=== PATIENT | female | born 1970 | race African-American/Black ===

== ENCOUNTER 2017-01-24 18:41 | Emergency (ER) | payer MEDICARE, OTHER ==
[~2017-01-24] VITALS: Ht 165.1 cm; Wt 98.0 kg
[~2017-01-24 18:41] MED LIST: ALBUTEROL SULF8.5 GM INH; ALDACTAZIDE 251 EACH ORAL; AZITHROMYCIN250 MG ORAL; GABAPENTIN600 MG ORAL; IBUPROFEN600 MG ORAL; NAPROXEN500 M2 ORAL; NORCO 10-325 T1 EACH ORAL; PREDNISONE20 MG ORAL; TRAMADOL HCL50 MG ORAL; VALIUM5 MG ORAL
[2017-01-24] MEDS ORDERED: Norco 5mg/325mg tab ORAL ONE (19:45)
[2017-01-24] MEDS ORDERED: ELBOW STRAP1 EACH MC (20:20)
[2017-01-24] MEDS ORDERED: IBUPROFEN600 MG ORAL (20:20)
[2017-01-24] MEDS ORDERED: TRAMADOL HCL50 MG ORAL (20:20)
[2017-01-24 20:50] VITALS: BP 127/87
--- NOTE | 2017-01-24 21:53 | Emergency Room Report ---
History of Present Illness General Chief Complaint: Pain Source: Patient Present Illness [facility] The patient is a 46-year-old female presenting with left arm pain which began yesterday for no known reason. Pain is described as a 9/10 dull ache and does not radiate from the left elbow. Pain worse with arm movement. The patient denies any known injury to the area. She denies any numbness or tingling. She does admit to increased use of the arm recently for work. She denies any other symptoms including nausea, vomiting, fever, chills, rash Allergies: Coded Allergies: PENICILLINS (Unverified Allergy, Unknown, 12/07/14) Penicillium Notatum (Unverified Allergy, Unknown, 12/07/14) Patient History Past Medical History: see triage record Pertinent Family History: none Last Menstrual Period: Jul 2016 Now: No Reviewed Nursing Documentation: PMH: Agreed, PSxH: Agreed Nursing Documentation-PMH Past Medical History: No Stated History Hx Hypertension: Yes Hx Asthma: Yes Review of Systems All Other Systems: negative except mentioned in HPI Physical Exam Vital Signs Date Time Temp Pulse Resp B/P Pulse Ox O2 Delivery O2 Flow Rate FiO2 01/24/17 19:04 99.0 82 14 127/87 100 Room Air Sp02 EP Interpretation: reviewed, normal General Appearance: no apparent distress, alert, GCS 15, non-toxic Head: normocephalic, atraumatic Eyes: bilateral eye PERRL, bilateral eye normal inspection Musculoskeletal: normal inspection, normal range of motion, tender - TTP over the L lateral epicondyle Neurologic: alert, oriented x3, responsive, motor strength/tone normal, sensory intact, speech normal Psychiatric: judgement/insight normal, memory normal, mood/affect normal, no suicidal/homicidal ideation Skin: normal color, no rash, warm/dry, well hydrated Lymphatic: no adenopathy Procedures Splinting Splinting : Consent: Verbal Location: L forearm Pre-Made Type: TIN wrap Pre-Proc Neuro Vasc Exam: normal Post-Proc Neuro Vasc Exam: normal Patient Tolerated: Well Complications: None Medical Decision Making PA Attestation Dr. Millan is my supervising physician. Patient management was discussed with my supervising physician Diagnostic Impression: Primary Impression: Epicondylitis, lateral (tennis elbow) Qualified Codes: M77.12 - Lateral epicondylitis, left elbow ER Course The patient is a 46-year-old female presenting with left arm pain Ddx considered include but not limited to sprain/strain, fracture, contusion, tendonitis PE: Vitals within normal limits. No apparent distress Left arm: There is tenderness to palpation over the lateral upper condyle. No edema to the forearm or elbow. No ecchymosis. Full active range of motion. Pain worse with wrist extension. Tin wrap was placed over the forearm for compression. The patient is given pain medications and feels better Be discharged home with a forearm band is a prescription as well as pain medication. She is given RICE instructions and will followup with PMD. ER precautions given Last Vital Signs Date Time Temp Pulse Resp B/P Pulse Ox O2 Delivery O2 Flow Rate FiO2 01/24/17 19:04 99.0 82 14 127/87 100 Room Air Status: improved Disposition: HOME, SELF-CARE Condition: Improved Scripts Arm Brace (ELBOW STRAP) 1 Each Each 1 EACH , #1 Prov: SHELLY BROUSSARD.A. 01/24/17 Tramadol Hcl* (ULTRAM*) 50 Mg Tablet 50 MG ORAL Q6H Y for For Pain, #10 TAB 0 Refills Prov: MARIA ELENAANSHELLY P.A. 01/24/17 Ibuprofen* (MOTRIN*) 600 Mg Tablet 600 MG ORAL Q6H Y for For Pain, #30 TAB Prov: SHELLY BROUSSARD P.A. 01/24/17 Patient Instructions: Lateral Epicondylitis With Rehab-SportsMed Additional Instructions: I discussed my findings with the patient. All questions and concerns have been answered. Treatment and medication compliance have been addressed. I advised the patient that they need to follow up with PMD in 3-5 days. Return to ED if pain remains or worsens, numbness or tingling occurs, new rash is noticed, fever is noticed, or if needed for any reason. Patient verbalized understanding of discharge instructions. SHELLY BROUSSARD January 24, 2017 21:53
== END 2017-01-24 20:50 | disposition home or self-care (01) ==
LOC: EMR 19:30
DX: M77.12 Lateral epicondylitis, left elbow (principal); I10 Essential (primary) hypertension; J45.909 Unspecified asthma, uncomplicated
CPT/HCPCS: 29260; 99284

== ENCOUNTER 2017-01-26 19:33 | Emergency (ER) | payer MEDICARE, OTHER ==
[~2017-01-26] VITALS: Ht 165.1 cm; Wt 117.9 kg
[~2017-01-26 19:33] MED LIST changes: +ELBOW STRAP1 EACH MC
[2017-01-26 20:11] VITALS: BP 143/87
[2017-01-26] MEDS ORDERED: Ketorolac 30mg Inj IM ONE (20:15)
[2017-01-26] MEDS ORDERED: BACLOFEN10 MG ORAL (20:52)
[2017-01-26 21:00] VITALS: BP 143/87
--- NOTE | 2017-01-26 22:21 | Emergency Room Report ---
History of Present Illness General Chief Complaint: Pain Present Illness HPI The patient is a 46 old female presenting with left arm pain. The patient was seen in this emergency department 2 days prior and diagnosed with epicondylitis. The patient was given a prescription for pain medications and an arm brace which the patient did not obtain. The patient states that pain has continued and is a 6/10 dull ache. Pain does not radiate from around the left elbow. It is worse with arm movement and touch. She denies known injury to this area. She denies any other symptoms including nausea, vomiting, fever, chills, numbness or tingling, chest pain, shortness of breath Allergies: Coded Allergies: PENICILLINS (Unverified Allergy, Unknown, 12/07/14) Penicillium Notatum (Unverified Allergy, Unknown, 12/07/14) Patient History Past Medical History: see triage record Pertinent Family History: none Last Menstrual Period: JUL 2016 Reviewed Nursing Documentation: PMH: Agreed, PSxH: Agreed Nursing Documentation-PMH Hx Hypertension: Yes Hx Asthma: Yes Review of Systems All Other Systems: negative except mentioned in HPI Physical Exam Vital Signs Date Time Temp Pulse Resp B/P Pulse Ox O2 Delivery O2 Flow Rate FiO2 01/26/17 19:44 99.0 96 18 148/98 97 Room Air Sp02 EP Interpretation: reviewed, normal General Appearance: no apparent distress, alert, GCS 15, non-toxic Head: normocephalic, atraumatic Eyes: bilateral eye PERRL, bilateral eye normal inspection ENT: hearing grossly normal, normal pharynx, no angioedema, normal voice Musculoskeletal: normal range of motion, swelling, tender - TTP over the L lateral elbow Neurologic: alert, oriented x3, responsive, motor strength/tone normal, sensory intact, speech normal Psychiatric: judgement/insight normal, memory normal, mood/affect normal, no suicidal/homicidal ideation Skin: normal color, no rash, warm/dry, well hydrated Lymphatic: no adenopathy Procedures Splinting Splinting : Consent: Verbal Location: L forearm Pre-Made Type: TIN wrap Pre-Proc Neuro Vasc Exam: normal Post-Proc Neuro Vasc Exam: normal Patient Tolerated: Well Complications: None Medical Decision Making PA Attestation Dr. Zuniga is my supervising physician. Patient management was discussed with my supervising physician Diagnostic Impression: Primary Impression: Epicondylitis, lateral (tennis elbow) Qualified Codes: M77.12 - Lateral epicondylitis, left elbow ER Course The patient is a 46 old female presenting with left arm pain Ddx considered include but not limited to sprain/strain, fracture, contusion, tendonitis PE:No apparent distress. Left elbow: There is tenderness over the lateral aspect. There is edema distal to the lateral epicondyle. Full active range of motion. X-ray of the elbow is unremarkable. Tin wrap is placed over the forearm as a brace. The patient is discharged and will continue to use the medication as which were prescribed. She is also requesting a prescription for baclofen. ER precautions are given and she will follow up with PMD. RICE instructions given Other X-Ray Diagnostic Results Other X-Ray Diagnostic Results : X-Ray Ordered: L elbow Date: January 26, 2017 EP Interpretation: Yes Findings: no fractures, no dislocation, no soft tissue swelling Number of Views: 3 PA Scribe Text I am acting as scribe for my supervising physician. My supervising physician's interpretation of the L elbow xrays are there are no fractures, dislocations or soft tissue swelling. Last Vital Signs Date Time Temp Pulse Resp B/P Pulse Ox O2 Delivery O2 Flow Rate FiO2 01/26/17 21:00 99.0 87 18 143/87 97 Room Air Status: improved Disposition: HOME, SELF-CARE Condition: Improved Scripts Baclofen* (BACLOFEN*) 10 Mg Tablet 10 MG ORAL THREE TIMES A DAY, #15 TAB Prov: SHELLY BROUSSARD 01/26/17 Referrals: NOT CHOSEN IPA/MD,REFERRING (PCP) Patient Instructions: Tennis Elbow Additional Instructions: I discussed my findings with the patient. All questions and concerns have been answered. Treatment and medication compliance have been addressed. I advised the patient that they need to follow up with PMD in 3-5 days. Return to ED if pain remains or worsens, numbness or tingling occurs, new rash is noticed, fever is noticed, or if needed for any reason. Patient verbalized understanding of discharge instructions. SHELLY BROUSSARD January 26, 2017 22:21
--- NOTE | 2017-01-27 10:25 | Diagnostic Imaging Report ---
Indications: Left elbow pain Technique: 3 views left elbow. Findings: Comparison: None Soft tissues over the dorsum of the proximal forearm are mildly swollen and reticulated. No associated mass, gas or foreign body. No fracture, dislocation, joint space widening or effusion, lytic destruction, periosteal reaction , or other acute changes are identified. Small spur emanates from the coracoid process of the ulna. No other chronic changes are demonstrated. IMPRESSION: Dorsal soft tissue swelling, nonspecific No other evidence of acute abnormality of the left elbow Ulnar coracoid enthesophyte.
== END 2017-01-26 21:00 | disposition home or self-care (01) ==
LOC: EMR 20:02
DX: M77.12 Lateral epicondylitis, left elbow (principal); Z88.0 Allergy status to penicillin; I10 Essential (primary) hypertension; J45.909 Unspecified asthma, uncomplicated
CPT/HCPCS: 29260; 73080; 96372; 99283; J1885

== ENCOUNTER 2017-06-23 18:14 | Emergency (ER) | payer MEDICARE, OTHER ==
[~2017-06-23] VITALS: Ht 165.1 cm; Wt 113.4 kg
[~2017-06-23 18:14] MED LIST changes: +BACLOFEN10 MG ORAL
[2017-06-23 19:30] VITALS: BP 131/78
[2017-06-23 19:35] LABS: BASOPHILS % (AUTO) 1.7 % (0.0-2.0); EOSINOPHILS % (AUTO) 5.6 % (0.0-3.0); LYMPHOCYTES % (AUTO) 40.5 % (20.0-45.0); MEAN CORPUSCULAR HEMOGLOBIN 27.5 PG (27.0-31.0); MEAN CORPUSCULAR HGB CONC 30.2 G/DL (32.0-36.0); MEAN CORPUSCULAR VOLUME 91 FL (80-99); MEAN PLATELET VOLUME 7.7 FL (6.5-10.1); MONOCYTES % (AUTO) 10.6 % (1.0-10.0); NEUTROPHILS % (AUTO) 41.6 % (45.0-75.0); PLATELET COUNT 255 K/UL (150-450); RED CELL DISTRIBUTION WIDTH 13.5 % (11.6-14.8); WHITE BLOOD COUNT 8.9 K/UL (4.8-10.8)
[2017-06-23 20:11] LABS: ALANINE AMINOTRANSFERASE 23 U/L (12-78); ALBUMIN/GLOBULIN RATIO 0.6 (1.0-2.7); ANION GAP 4 (5-15); ASPARTATE AMINO TRANSFERASE 16 U/L (15-37); CALCIUM 9.2 MG/DL (8.5-10.1); CARBON DIOXIDE 32 MMOL/L (21-32); CHLORIDE 102 MMOL/L (98-107); CKMB 0.9 NG/ML (0.0-3.6); GLOMERULAR FILTRATION RATE > 60 mL/min (>60); POTASSIUM 4.2 MMOL/L (3.5-5.1); SODIUM 138 MMOL/L (136-145); TOTAL PROTEIN 8.8 G/DL (6.4-8.2)
--- NOTE | 2017-06-23 21:17 | Emergency Room Report ---
History of Present Illness General Chief Complaint: Chest Pain Source: Patient Present Illness HPI [id number] with chief complaint right breast pain for 3-4 days. Had 1x episode of "clear liquid" from breast days ago. Denies fever/chills, rash/abscess. Had mammogram "years ago." No abnormalities. Also c/o left sided chest pain for 2-3 days. Non radiating. Worse with movement. No CAD risk factors aside from HTN. No history of DVT, PE. Denies ETOH, smoking, drug use. Allergies: Coded Allergies: PENICILLINS (Unverified Allergy, Unknown, 12/07/14) Penicillium Notatum (Unverified Allergy, Unknown, 12/07/14) Patient History Past Medical History: HTN Past Surgical History: none Pertinent Family History: none Social History: Denies: smoking, alcohol use, drug use Now: No Immunizations: UTD Reviewed Nursing Documentation: PMH: Agreed, PSxH: Agreed Nursing Documentation-PMH Past Medical History: No History, Except For Hx Hypertension: Yes Hx Asthma: Yes Review of Systems All Other Systems: negative except mentioned in HPI Physical Exam Vital Signs Date Time Temp Pulse Resp B/P (MAP) Pulse Ox O2 Delivery O2 Flow Rate FiO2 06/23/17 18:23 97.0 84 16 172/94 97 Room Air Sp02 EP Interpretation: reviewed, normal General Appearance: normal inspection, well appearing, no apparent distress, alert Head: normocephalic, atraumatic Eyes: bilateral eye PERRL, bilateral eye EOMI ENT: normal ENT inspection Neck: normal inspection, full range of motion, supple, no bony tend Respiratory: normal inspection, lungs clear, normal breath sounds, no respiratory distress, no retraction, no wheezing Cardiovascular #1: regular rate, rhythm, no edema Gastrointestinal: normal inspection, normal bowel sounds, non tender, soft, no guarding, no hernia Genitourinary: no CVA tenderness Musculoskeletal: normal inspection, back normal, normal range of motion, Doni' s Sign negative Neurologic: normal inspection, alert, oriented x3, responsive, pump servicer helper III-XII nml as tested, motor strength/tone normal, speech normal Psychiatric: normal inspection, judgement/insight normal, mood/affect normal Skin: normal inspection, normal color, no rash, other - Breast exam with RN Kinsey bedside. No palpable right breast mass. No induration/erythema. No nipple abscess/discharge or mastitis. Medical Decision Making Diagnostic Impression: Primary Impression: Breast pain, right Additional Impression: Chest pain Qualified Codes: R07.9 - Chest pain, unspecified ER Course Right breast pain: No abscess or mastitis. No rash. Recommend outpatient mammogram Chest pain Labs, ECG, CXR no acute abnormality Low suspicion for ACS or PE given low risk HEART score, well appearance, duration of symptoms. Advised PMD followup for Cardiology referral for outpatient stress test DC home EKG Diagnostic Results Rate: normal, other - PVC Rhythm: NSR ST Segments: no acute changes ASA given to the pt in ED: No Rhythm Strip Diag. Results EP Interpretation: yes Rate: 86 Rhythm: NSR, no PVC's, no ectopy Chest X-Ray Diagnostic Results Chest X-Ray Diagnostic Results : Chest X-Ray Ordered: Yes # of Views/Limited/Complete: 1 View Indication: Chest Pain EP Interpretation: Yes Interpretation: no consolidation, no effusion, no pneumothorax, no acute cardiopulmonary disease Impression: No acute disease Electronically Signed by: Dr Paulie Alexandra MD Last Vital Signs Date Time Temp Pulse Resp B/P (MAP) Pulse Ox O2 Delivery O2 Flow Rate FiO2 06/23/17 18:23 97.0 84 16 172/94 97 Room Air Status: improved Disposition: HOME, SELF-CARE Condition: Improved Patient Instructions: Nonspecific Chest Pain, Breast Tenderness Additional Instructions: - Please follow up with your doctor for mammogram of right breast pain PAULIE ALEXANDRA M.D. Jun 23, 2017 21:17
[2017-06-23 21:30] VITALS: BP 131/78
--- NOTE | 2017-06-24 12:47 | Diagnostic Imaging Report ---
Indication: Chest pain Comparison: 09/10/16 A single view chest radiograph was obtained. Findings: Cardiomediastinal appearance is within normal limits for age. Pulmonary vascularity is appropriate. The diaphragmatic contour is smooth and costophrenic angles are sharp. No pleural effusions are identified. The bones are unremarkable. Impression: No acute findings
--- NOTE | 2017-07-05 08:41 | Cardiology Report ---
APPROVED REPORT EKG Measurement Heart [id number] Sinus rhythm with frequent premature ventricular complexes Otherwise normal ECG
== END 2017-06-23 21:30 | disposition home or self-care (01) ==
LOC: EMR 19:55
DX: N64.4 Mastodynia (principal); R07.89 Other chest pain; Z88.0 Allergy status to penicillin; I10 Essential (primary) hypertension; J45.909 Unspecified asthma, uncomplicated
CPT/HCPCS: 36415; 71010; 80053; 82550; 82553; 83880; 84484; 85025; 93005; 99283

== ENCOUNTER 2019-03-13 17:27 | Inpatient (IN) | payer MEDICARE, MEDICAID ==
[~2019-03-13] VITALS: Ht 165.1 cm; Wt 126.1 kg
[2019-03-13 17:42] VITALS: BP 125/62
--- NOTE | 2019-03-13 17:42 | NUR ---
ED Nurse Note: PT FROM HOME CAME IN DUE TO LEFT SIDE CP RADIATES TO LEFT UPPER ARM WITH NAUSEA SINCE 1130 THIS MORNING. PT TOOK ASA 500MG THIS AM. NO HX OF HEART PROBLEMS. AAO X4, AMBULATORY WITH NON LABORED BREATHING. MOANING IN PAIN BUT VSS. DR LAND AWARE.
[2019-03-13] MEDS ORDERED: Ketorolac 30mg Inj IV ONE (17:45)
--- NOTE | 2019-03-13 17:52 | Emergency Room Report ---
History of Present Illness General Chief Complaint: Chest Pain Source: Patient Present Illness HPI She states that her hip the patient presents with left-sided chest pain. It began while she was riding in a car with her sister. She was sitting down. She feels that sharp and stabbing in the upper left side of her chest. Somewhat pleuritic and radiates down her left arm slightly. She has a history of hypertension. She is on Spironolactone and hydrochlorothiazide. She has had a hip replacement. The pain is less than that however is severe. She rates it 8/10 at this time. She denies any fever or productive cough. She has had some coughing over the last few days. She has a history of asthma but does not use an inhaler routinely and does not have one at this time. She has not heard herself wheezing. Apparently she was doing heavy lifting yesterday. Patient denies dysuria. There is no diarrhea. There is no calf pain. Her last period ended 2 days ago and was normal for her. She denies diabetes. Surgery came about from overuse she was extremely active when she was younger. Allergies: Coded Allergies: METFORMIN (Verified Allergy, Unknown, Rash, 03/13/19) PENICILLINS (Unverified Allergy, Unknown, 12/07/14) TRAMADOL (Verified Allergy, Unknown, Rash, 03/13/19) Patient History Past Medical History: see triage record Past Surgical History: other - Hip surgery Social History: Denies: smoking Social History Narrative With her sister Last Menstrual Period: 03/10/19 Reviewed Nursing Documentation: PMH: Agreed; PSxH: Agreed Nursing Documentation-PMH Past Medical History: No History, Except For Hx Hypertension: Yes Hx Asthma: Yes Review of Systems All Other Systems: negative except mentioned in HPI Physical Exam Vital Signs Date Time Temp Pulse Resp B/P (MAP) Pulse Ox O2 Delivery O2 Flow Rate FiO2 03/13/19 17:32 98.2 96 18 138/94 (109) 94 Room Air Sp02 EP Interpretation: reviewed, normal General Appearance: well appearing, no apparent distress, GCS 15 Head: normocephalic Eyes: bilateral eye normal inspection ENT: moist mucus membranes Neck: supple Respiratory: lungs clear, normal breath sounds, other - Chest wall tenderness and shoulder tenderness which re-creates the pain Cardiovascular #1: regular rate, rhythm Cardiovascular #2: 2+ radial (R) Gastrointestinal: normal inspection, normal bowel sounds, non tender, no mass, non-distended, overweight Musculoskeletal: back normal, no calf tenderness, Doin's Sign negative, tender - Left shoulder and left chest wall with painful range of motion passively of left arm in the shoulder region Neurologic: alert, oriented x3, grossly normal Psychiatric: depressed affect Skin: no rash Medical Decision Making Diagnostic Impression: Primary Impression: Intractable chest pain Additional Impressions: Chest pain Qualified Codes: R07.89 - Other chest pain Hyperglycemia Hypertension Qualified Codes: I10 - Essential (primary) hypertension BMI 45.0-49.9, adult ER Course Patient presents with left-sided chest pain starting at rest. Differential includes acute myocardial infarction, costochondritis, pleurisy, pneumothorax, pulmonary embolus, chest wall strain amongst others. Based on her history and exam pulmonary embolus is less likely. Based on the history musculoskeletal because it is highly suspected evaluation will be with EKG, chest x-ray and labs. The patient will be treated with Zofran and Toradol. EKG with normal sinus rhythm. Nonspecific ST-T wave changes. Chest x-ray without abnormality. Labs significant for elevated blood glucose and negative troponin. Pain unchanged after Toradol, Percocet. She is still complains of severe pain. Also whenever she moves her arm the pain worsens. Her sister states "she cannot use her arm". There is no evidence of stroke at this time. Dilaudid is ordered. Patient complaining of nausea and still significant pain. She states that Bradner and Percocet do not help her at all. She gets more help from codeine. However based on the severity of the pain stronger analgesia will be used. Reglan and Benadryl administered. A sling is applied by the remanufacturing technician. This provided some relief. Distal neurovascular was intact although she preferred not to move her arm. This is checked by me. Due to the severity of the pain and disability and risk factors the patient is admitted to observation telemetry. Laboratory Tests Test 03/13/19 17:55 03/13/19 19:00 White Blood Count 7.6 K/UL (4.8-10.8) Red Blood Count 4.87 M/UL (4.20-5.40) Hemoglobin 13.7 G/DL (12.0-16.0) Hematocrit 41.8 % (37.0-47.0) Mean Corpuscular Volume 86 FL (80-99) Mean Corpuscular Hemoglobin 28.1 PG (27.0-31.0) Mean Corpuscular Hemoglobin Concent 32.8 G/DL (32.0-36.0) Red Cell Distribution Width 12.3 % (11.6-14.8) Platelet Count 275 K/UL (150-450) Mean Platelet Volume 7.3 FL (6.5-10.1) Neutrophils (%) (Auto) 46.2 % (45.0-75.0) Lymphocytes (%) (Auto) 42.3 % (20.0-45.0) Monocytes (%) (Auto) 6.4 % (1.0-10.0) Eosinophils (%) (Auto) 3.4 % (0.0-3.0) H Basophils (%) (Auto) 1.7 % (0.0-2.0) Prothrombin Time 10.5 SEC (9.30-11.50) Prothrombin Time INR 1.0 (0.9-1.1) PTT 27 SEC (23-33) Sodium Level 139 MMOL/L (136-145) Potassium Level 3.7 MMOL/L (3.5-5.1) Chloride Level 102 MMOL/L (98-107) Carbon Dioxide Level 28 MMOL/L (21-32) Anion Gap 9 mmol/L (5-15) Blood Urea Nitrogen 14 mg/dL (7-18) Creatinine 1.1 MG/DL (0.55-1.30) Estimate Glomerular Filtration Rate > 60 mL/min (>60) Glucose Level 223 MG/DL (74-106) H Calcium Level 9.6 MG/DL (8.5-10.1) Total Bilirubin 0.3 MG/DL (0.2-1.0) Aspartate Amino Transferase (AST) 16 U/L (15-37) Alanine Aminotransferase (ALT) 32 U/L (12-78) Alkaline Phosphatase 68 U/L (46-116) Total Creatine Kinase 126 U/L (26-308) Troponin I 0.000 ng/mL (0.000-0.056) Pro-B-Type Natriuretic Peptide 9 pg/mL (0-125) Total Protein 8.9 G/DL (6.4-8.2) H Albumin 3.5 G/DL (3.4-5.0) Globulin 5.4 g/dL Albumin/Globulin Ratio 0.6 (1.0-2.7) L Lipase 422 U/L (73-393) H Urine Color Pale yellow Urine Appearance Slightly cloudy Urine pH 5 (4.5-8.0) Urine Specific [place] 1.020 (1.005-1.035) Urine Protein Negative (NEGATIVE) Urine Glucose (UA) Negative (NEGATIVE) Urine Ketones Negative (NEGATIVE) Urine Blood Negative (NEGATIVE) Urine Nitrite Negative (NEGATIVE) Urine Bilirubin Negative (NEGATIVE) Urine Urobilinogen Normal MG/DL (0.0-1.0) Urine Leukocyte Esterase 1+ (NEGATIVE) H Urine RBC 0-2 /HPF (0 - 2) Urine WBC 2-4 /HPF (0 - 2) Urine Squamous Epithelial Cells Moderate /LPF (NONE/OCC) H Urine Bacteria Moderate /HPF (NONE) H Urine HCG, Qualitative Negative (NEGATIVE) Urine Opiates Screen Negative (NEGATIVE) Urine Barbiturates Screen Negative (NEGATIVE) Phencyclidine (PCP) Screen Negative (NEGATIVE) Urine Amphetamines Screen Negative (NEGATIVE) Urine Benzodiazepines Screen Negative (NEGATIVE) Urine Cocaine Screen Negative (NEGATIVE) Urine Marijuana (THC) Screen Negative (NEGATIVE) EKG Diagnostic Results Rate: normal Rhythm: NSR ST Segments: no acute changes Rhythm Strip Diag. Results EP Interpretation: yes Rhythm: NSR, no PVC's, no ectopy Chest X-Ray Diagnostic Results Chest X-Ray Diagnostic Results : Chest X-Ray Ordered: Yes # of Views/Limited/Complete: 1 View Indication: Chest Pain EP Interpretation: Yes Interpretation: no consolidation, no effusion, no pneumothorax Impression: No acute disease Electronically Signed by: Electronically signed by Uziel Duenas MD Last Vital Signs Date Time Temp Pulse Resp B/P (MAP) Pulse Ox O2 Delivery O2 Flow Rate FiO2 03/13/19 23:21 Room Air 03/13/19 23:21 100 03/13/19 23:21 98.6 18 133/73 (93) 94 Status: improved Disposition: PLACE IN OBSERVATION Condition: Serious Uziel Duenas MD Mar 13, 2019 17:52
--- NOTE | 2019-03-13 18:01 | NUR ---
ED Nurse Note: COLLECTED BLOOD SPECIMEN THEN SENT. PERMIT TECHNICIAN AT THE BED SIDE.
[2019-03-13 18:09] LABS: BASOPHILS % (AUTO) 1.7 % (0.0-2.0); EOSINOPHILS % (AUTO) 3.4 % (0.0-3.0); HEMATOCRIT 41.8 % (37.0-47.0); HEMOGLOBIN 13.7 G/DL (12.0-16.0); LYMPHOCYTES % (AUTO) 42.3 % (20.0-45.0); MEAN CORPUSCULAR VOLUME 86 FL (80-99); MONOCYTES % (AUTO) 6.4 % (1.0-10.0); NEUTROPHILS % (AUTO) 46.2 % (45.0-75.0); PLATELET COUNT 275 K/UL (150-450); RED BLOOD COUNT 4.87 M/UL (4.20-5.40); RED CELL DISTRIBUTION WIDTH 12.3 % (11.6-14.8); WHITE BLOOD COUNT 7.6 K/UL (4.8-10.8)
--- NOTE | 2019-03-13 18:12 | NUR ---
ED Nurse Note: SISTER AT THE BED SIDE.
[2019-03-13 18:26] LABS: ANION GAP 9 mmol/L (5-15); BLOOD UREA NITROGEN 14 mg/dL (7-18); CALCIUM 9.6 MG/DL (8.5-10.1); CARBON DIOXIDE 28 MMOL/L (21-32); CHLORIDE 102 MMOL/L (98-107); CREATININE 1.1 MG/DL (0.55-1.30); POTASSIUM 3.7 MMOL/L (3.5-5.1); SODIUM 139 MMOL/L (136-145)
[2019-03-13 18:36] LABS: ALANINE AMINOTRANSFERASE 32 U/L (12-78); ALBUMIN 3.5 G/DL (3.4-5.0); ALBUMIN/GLOBULIN RATIO 0.6 (1.0-2.7); ALKALINE PHOSPHATASE 68 U/L (46-116); ASPARTATE AMINO TRANSFERASE 16 U/L (15-37); BILIRUBIN,TOTAL 0.3 MG/DL (0.2-1.0); CREATINE KINASE 126 U/L (26-308)
--- NOTE | 2019-03-13 18:41 | NUR ---
ED Nurse Note: COLLECTED URINE THEN SENT TO LAB.
--- NOTE | 2019-03-13 19:00 | NUR ---
HAND-OFF: Report given to ESTEPHANIA GARCIA.
[2019-03-13 19:08] LABS: APPEARANCE,URINE SLIGHTLY CLOUDY; BILIRUBIN, URINE NEGATIVE (NEGATIVE); COLOR,URINE PALE YELLOW; GLUCOSE, URINE (UA) NEGATIVE (NEGATIVE); KETONES,URINE NEGATIVE (NEGATIVE); LEUKOCYTE ESTERASE ,URINE 1+ (NEGATIVE); NITRITE,URINE NEGATIVE (NEGATIVE); PH,URINE 5 (4.5-8.0); PROTEIN,URINE NEGATIVE (NEGATIVE); UROBILINOGEN,URINE NORMAL MG/DL (0.0-1.0)
[2019-03-13] MEDS ORDERED: HYDROcodone/Acetamin 5/325 tab ORAL ONE (19:30)
[2019-03-13] MEDS ORDERED: oxyCODONE HCL/Acetaminophen 5/325mg ORAL ONE (19:45)
[2019-03-13 20:03] VITALS: BP 131/65
--- NOTE | 2019-03-13 20:20 | NUR ---
NURSE NOTES: Patient received from ED via gurney. Patient is A/O x4, breathing room air spontaneously and ambulatory. Patient has a sling on her left arm and verbalized pain to her left shoulder, arm and chest. lunchroom monitor is in place, vital signs are stable. Bed is locked and in the lowest position. Call light is within patient's easy reach. Patient monitor continues. Will call MD for admission orders.
--- NOTE | 2019-03-13 20:45 | NUR ---
ED Nurse Note: Patient was medicated but still complaining of pain 8/10. More pain meds were order by ER MD.
[2019-03-13] MEDS ORDERED: HYDROmorphone 1mg/ml Carpuject IVP ONE (21:00)
[2019-03-13 22:00] VITALS: BP 131/65
[2019-03-13] MEDS ORDERED: Metoclopramide 10mg/2ml Inj IVP ONE (22:15)
[2019-03-13] MEDS ORDERED: DiphenhydrAMINE 50mg/ml Inj IVP ONE (22:15)
--- NOTE | 2019-03-13 23:05 | NUR ---
ED Nurse Note: Patient was admited to Tele due to CP, left arm, and shoulder pain. AAO x4, VSS at this time, skin is intact, warm to touch. Patient was transfered to unit via gurney by ACLS protocol, with all belongings.
[2019-03-13 23:10] VITALS: BP 125/67
[2019-03-13 23:21] VITALS: BP 133/73
[2019-03-14 04:00] VITALS: BP 123/77
--- NOTE | 2019-03-14 07:20 | NUR ---
HAND-OFF: Report given to JOSE Piedra.
--- NOTE | 2019-03-14 07:21 | NUR ---
NURSE NOTES: Received patient from [facility] RN's in bed having breakfast. Complain of pain 6/10, will give medication for pain. IV is intact and patent. Bed is lowest position, brakes engaged for safety. Call light is within easy reach. Noted patient has sling on left arm. Table and personal belongings within reach. Will continue with the plan of care.
[2019-03-14 08:00] VITALS: BP 124/81
[2019-03-14] MEDS: Spironolactone 25mg tab ORAL SCH (08:27)
--- NOTE | 2019-03-14 08:32 | NUR ---
CASE MANAGEMENT: INITIAL REVIEW 48 YO F PRESENTED TO ED FROM HOME CC: LEFT SIDED CP PMHx: HTN. ASTHMA. SI:LEFT SIDED CP. T 98.2 HR 96 RR 18 B/P 138/94 SATS 94% ON RA GLU 223 IS: ZOFRAN IV X1 KETORALAC IV X1 NORCO PO X1 LIDOCAINE TDERMAL X1 DILAUDID IV X1 PATIENT ADMITTED TO TELE 03/13/2019 @ 2333 DCP: PATIENT TO BE DISCHARGED TO HOME ONCE MEDICALLY CLEARED. 03/14/2019 SI:LEFT SIDED PAIN T 98.1 HR 99 RR 18 B/P 124/81 SATS 98% ON RA TROPONIN (-) IS: LIDOCAINE PATCH TDERMAL QD ALDACTONE PO QD TELE STATUS DCP: PATIENT TO BE DISCHARGED TO HOME ONCE MEDICALLY CLEARED. PLAN OF CARE: CARDIO EVAL Addendum: 03/14/19 at 0841 by Imani Mi CM INTERQUAL MET
--- NOTE | 2019-03-14 08:39 | NUR ---
INSURANCE NO B/AR INDICATION WHERE TO FAX CLINICALS/REVIEWS
--- NOTE | 2019-03-14 10:28 | GI Initial Consult Note ---
History of Present Illness General Date patient seen: Mar 14, 2019 Time patient seen: 10:23 Reason for Hospitalization: Chest Pain Referring physician: MALLY WASHBURN Reason for Consultation: PANCREATITIS Present Illness HPI She states that her hip the patient presents with left-sided chest pain. It began while she was riding in a car with her sister. She was sitting down. She feels that sharp and stabbing in the upper left side of her chest. Somewhat pleuritic and radiates down her left arm slightly. She has a history of hypertension. She is on Spironolactone and hydrochlorothiazide. She has had a hip replacement. The pain is less than that however is severe. She rates it 8/10 at this time. She denies any fever or productive cough. She has had some coughing over the last few days. She has a history of asthma but does not use an inhaler routinely and does not have one at this time. She has not heard herself wheezing. Apparently she was doing heavy lifting yesterday. Patient denies dysuria. There is no diarrhea. There is no calf pain. Her last period ended 2 days ago and was normal for her. She denies diabetes. Surgery came about from overuse she was extremely active when she was younger. GI consulted for pancreatitis. Patient seen, awake alert and oriented x4 no apparent distress. The patient has complaint of severe upper left-sided chest pain and left shoulder pain. Her initial symptoms as described above. In addition, the patient did state she did carry heavy objects a few days ago which may have caused/contributed to a strain in her shoulder. Labs reviewed; no leukocytosis, no anemia, negative urine toxicity. Lipase elevated at 422. The patient denies any use of alcohol or intake of fatty foods. She denies any nausea vomiting, abdominal pain, diarrhea or constipation. Patient has no history of endoscopic or colonoscopy. Home Meds Active Scripts Baclofen* (BACLOFEN*) 10 Mg Tablet, 10 MG ORAL THREE TIMES A DAY, #15 TAB Prov:TERZIAN,SHELLY P.A. 01/26/17 Arm Brace (ELBOW STRAP) 1 Each Each, 1 EACH , #1 Prov:TERZIAN,SHELLY P.A. 01/24/17 Tramadol Hcl* (ULTRAM*) 50 Mg Tablet, 50 MG ORAL Q6H PRN for For Pain, #10 TAB 0 Refills Prov:TERZIAN,SHELLY P.A. 01/24/17 Ibuprofen* (MOTRIN*) 600 Mg Tablet, 600 MG ORAL Q6H PRN for For Pain, #30 TAB Prov:TERZIAN,SHELLY P.A. 01/24/17 Tramadol Hcl* (ULTRAM*) 50 Mg Tablet, 50 MG ORAL Q6H PRN for For Pain, #15 TAB 0 Refills Prov:Levy Millan MD 09/10/16 Ibuprofen* (MOTRIN*) 600 Mg Tablet, 600 MG ORAL THREE TIMES A DAY, #30 TAB Prov:Kamilla Buckner 02/12/16 Reported Medications Naproxen* (NAPROXEN*) 500 Mg Tablet, 500 MG ORAL TWICE A DAY, TAB 02/12/16 Spironolact/Hydrochlorothiazid (ALDACTAZIDE 25-25 TABLET) 1 Each Tablet, 1 TAB ORAL DAILY, TAB 02/12/16 [none] No Conflict Check 08/29/13 Discontinued Reported Medications Gabapentin* (GABAPENTIN*) 600 Mg Tablet, 600 MG ORAL THREE TIMES A DAY, TAB 02/12/16 Med list reviewed/reconciled: Yes Allergies: Coded Allergies: METFORMIN (Verified Allergy, Unknown, Rash, 03/13/19) PENICILLINS (Unverified Allergy, Unknown, 12/07/14) TRAMADOL (Verified Allergy, Unknown, Rash, 03/13/19) Patient History History Provided By: Patient, Medical Record PMH Narrative Past Medical History: see triage record Past Surgical History: other - Hip surgery Social History: Denies: smoking Social History Narrative With her sister Last Menstrual Period: 03/10/19 Reviewed Nursing Documentation: PMH: Agreed; PSxH: Agreed Social History: Denies: smoking, alcohol use, drug use, other Review of Systems All Other Systems: negative except mentioned in HPI Physical Exam Vital Signs Date Time Temp Pulse Resp B/P (MAP) Pulse Ox O2 Delivery O2 Flow Rate FiO2 03/13/19 17:32 98.2 96 18 138/94 (109) 94 Room Air Sp02 EP Interpretation: reviewed, normal Labs Laboratory Tests Test 03/13/19 17:55 03/13/19 19:00 03/14/19 05:50 White Blood Count 7.6 K/UL (4.8-10.8) Red Blood Count 4.87 M/UL (4.20-5.40) Hemoglobin 13.7 G/DL (12.0-16.0) Hematocrit 41.8 % (37.0-47.0) Mean Corpuscular Volume 86 FL (80-99) Mean Corpuscular Hemoglobin 28.1 PG (27.0-31.0) Mean Corpuscular Hemoglobin Concent 32.8 G/DL (32.0-36.0) Red Cell Distribution Width 12.3 % (11.6-14.8) Platelet Count 275 K/UL (150-450) Mean Platelet Volume 7.3 FL (6.5-10.1) Neutrophils (%) (Auto) 46.2 % (45.0-75.0) Lymphocytes (%) (Auto) 42.3 % (20.0-45.0) Monocytes (%) (Auto) 6.4 % (1.0-10.0) Eosinophils (%) (Auto) 3.4 % (0.0-3.0) H Basophils (%) (Auto) 1.7 % (0.0-2.0) Prothrombin Time 10.5 SEC (9.30-11.50) Prothromb Time International Ratio 1.0 (0.9-1.1) Activated Partial Thromboplast Time 27 SEC (23-33) Sodium Level 139 MMOL/L (136-145) Potassium Level 3.7 MMOL/L (3.5-5.1) Chloride Level 102 MMOL/L (98-107) Carbon Dioxide Level 28 MMOL/L (21-32) Anion Gap 9 mmol/L (5-15) Blood Urea Nitrogen 14 mg/dL (7-18) Creatinine 1.1 MG/DL (0.55-1.30) Estimat Glomerular Filtration Rate > 60 mL/min (>60) Glucose Level 223 MG/DL (74-106) H Calcium Level 9.6 MG/DL (8.5-10.1) Total Bilirubin 0.3 MG/DL (0.2-1.0) Aspartate Amino Transf (AST/SGOT) 16 U/L (15-37) Alanine Aminotransferase (ALT/SGPT) 32 U/L (12-78) Alkaline Phosphatase 68 U/L (46-116) Total Creatine Kinase 126 U/L (26-308) Troponin I 0.000 ng/mL (0.000-0.056) 0.000 ng/mL (0.000-0.056) Pro-B-Type Natriuretic Peptide 9 pg/mL (0-125) Total Protein 8.9 G/DL (6.4-8.2) H Albumin 3.5 G/DL (3.4-5.0) Globulin 5.4 g/dL Albumin/Globulin Ratio 0.6 (1.0-2.7) L Lipase 422 U/L (73-393) H Pending Urine Color Pale yellow Urine Appearance Slightly cloudy Urine pH 5 (4.5-8.0) Urine Specific [place] 1.020 (1.005-1.035) Urine Protein Negative (NEGATIVE) Urine Glucose (UA) Negative (NEGATIVE) Urine Ketones Negative (NEGATIVE) Urine Blood Negative (NEGATIVE) Urine Nitrite Negative (NEGATIVE) Urine Bilirubin Negative (NEGATIVE) Urine Urobilinogen Normal MG/DL (0.0-1.0) Urine Leukocyte Esterase 1+ (NEGATIVE) H Urine RBC 0-2 /HPF (0 - 2) Urine WBC 2-4 /HPF (0 - 2) Urine Squamous Epithelial Cells Moderate /LPF (NONE/OCC) H Urine Bacteria Moderate /HPF (NONE) H Urine HCG, Qualitative Negative (NEGATIVE) Urine Opiates Screen Negative (NEGATIVE) Urine Barbiturates Screen Negative (NEGATIVE) Phencyclidine (PCP) Screen Negative (NEGATIVE) Urine Amphetamines Screen Negative (NEGATIVE) Urine Benzodiazepines Screen Negative (NEGATIVE) Urine Cocaine Screen Negative (NEGATIVE) Urine Marijuana (THC) Screen Negative (NEGATIVE) Triglycerides Level Pending Cholesterol Level Pending LDL Cholesterol Pending HDL Cholesterol Pending Cholesterol/HDL Ratio Pending General Appearance: well appearing, no apparent distress, alert Head: normocephalic EENT: PERRL/EOMI, normal ENT inspection Neck: supple Respiratory: normal breath sounds, no respiratory distress Cardiovascular: normal rate Gastrointestinal: normal inspection, non tender, soft, normal bowel sounds, non -distended Rectal: deferred Genitourinary: no CVA tenderness Musculoskeletal: normal inspection, back normal Neurologic: normal inspection, alert, oriented x3, responsive Psychiatric: normal inspection, judgement/insight normal, memory normal Skin: normal inspection, normal color, no rash, warm/dry, palpation normal, well hydrated Lymphatic: normal inspection, no adenopathy Current Medications Current Medications Medications (Trade) Dose Ordered Sig/Bret Route PRN Reason Start Time Stop Time Status Last Admin Dose Admin Acetaminophen (Tylenol) 650 mg Q4H PRN ORAL Mild Pain/Temp > 100.5 03/14/19 00:00 04/13/19 00:00 03/14/19 08:02 Lidocaine (Lidoderm 5% PATCH) 1 patch DAILY TDERMAL 03/13/19 20:30 04/12/19 20:29 03/14/19 08:28 Spironolactone (Aldactone) 25 mg DAILY ORAL 03/14/19 09:00 04/13/19 08:59 03/14/19 08:27 GI: Plan Problems: (1) Pancreatitis Plan No plans for GI procedures at this time Symptomatic treatment Advance diet as tolerated Obtain lipid panel and lipase level Pain management Cardiac work-up for chest pain Zofran as needed H2-marshall Follow labs Discussed with Dr. Fields. Thank you for this patient referral, we will follow. The patient was seen and examined at bedside and all new and available data was reviewed in the patients chart. I agree with the above findings, impression and plan. (Patient seen earlier today. Signature stamp does not reflect patient encounter time.). - MD Nadya Garrett,[facility] [employer] Mar 14, 2019 10:28
[2019-03-14 10:42] LABS: CHOLESTEROL 210 MG/DL (< 200); HDL CHOLESTEROL 33 MG/DL (40-60); TRIGLYCERIDES 65 MG/DL (30-150)
[2019-03-14 12:00] VITALS: BP 127/89
--- NOTE | 2019-03-14 12:14 | Cardiac Electrophysiology PN ---
Subjective Subjective [id number] Objective Last 24 Hour Vital Signs Date Time Temp Pulse Resp B/P (MAP) Pulse Ox O2 Delivery O2 Flow Rate FiO2 03/14/19 09:49 100 03/14/19 08:42 Room Air 03/14/19 08:00 98.1 99 18 124/81 (95) 98 03/14/19 04:00 104 03/14/19 04:00 98.1 104 18 123/77 (92) 100 03/13/19 23:21 Room Air 03/13/19 23:21 100 03/13/19 23:21 98.6 100 18 133/73 (93) 94 03/13/19 23:10 98.3 100 16 125/67 96 Room Air 03/13/19 23:10 98.4 100 16 125/65 95 Room Air 03/13/19 22:00 98.3 72 16 131/65 96 Room Air 03/13/19 21:30 98.3 03/13/19 20:12 98.3 03/13/19 20:03 98.3 74 15 131/65 96 Room Air 03/13/19 18:29 98.3 03/13/19 17:42 96 18 Room Air 03/13/19 17:42 98.2 78 15 125/62 94 Room Air 03/13/19 17:32 98.2 96 18 138/94 (109) 94 Room Air Laboratory Tests Test 03/13/19 17:55 03/13/19 19:00 03/14/19 05:50 White Blood Count 7.6 K/UL (4.8-10.8) Red Blood Count 4.87 M/UL (4.20-5.40) Hemoglobin 13.7 G/DL (12.0-16.0) Hematocrit 41.8 % (37.0-47.0) Mean Corpuscular Volume 86 FL (80-99) Mean Corpuscular Hemoglobin 28.1 PG (27.0-31.0) Mean Corpuscular Hemoglobin Concent 32.8 G/DL (32.0-36.0) Red Cell Distribution Width 12.3 % (11.6-14.8) Platelet Count 275 K/UL (150-450) Mean Platelet Volume 7.3 FL (6.5-10.1) Neutrophils (%) (Auto) 46.2 % (45.0-75.0) Lymphocytes (%) (Auto) 42.3 % (20.0-45.0) Monocytes (%) (Auto) 6.4 % (1.0-10.0) Eosinophils (%) (Auto) 3.4 % (0.0-3.0) H Basophils (%) (Auto) 1.7 % (0.0-2.0) Prothrombin Time 10.5 SEC (9.30-11.50) Prothromb Time International Ratio 1.0 (0.9-1.1) Activated Partial Thromboplast Time 27 SEC (23-33) Sodium Level 139 MMOL/L (136-145) Potassium Level 3.7 MMOL/L (3.5-5.1) Chloride Level 102 MMOL/L (98-107) Carbon Dioxide Level 28 MMOL/L (21-32) Anion Gap 9 mmol/L (5-15) Blood Urea Nitrogen 14 mg/dL (7-18) Creatinine 1.1 MG/DL (0.55-1.30) Estimat Glomerular Filtration Rate > 60 mL/min (>60) Glucose Level 223 MG/DL (74-106) H Calcium Level 9.6 MG/DL (8.5-10.1) Total Bilirubin 0.3 MG/DL (0.2-1.0) Aspartate Amino Transf (AST/SGOT) 16 U/L (15-37) Alanine Aminotransferase (ALT/SGPT) 32 U/L (12-78) Alkaline Phosphatase 68 U/L (46-116) Total Creatine Kinase 126 U/L (26-308) Troponin I 0.000 ng/mL (0.000-0.056) 0.000 ng/mL (0.000-0.056) Pro-B-Type Natriuretic Peptide 9 pg/mL (0-125) Total Protein 8.9 G/DL (6.4-8.2) H Albumin 3.5 G/DL (3.4-5.0) Globulin 5.4 g/dL Albumin/Globulin Ratio 0.6 (1.0-2.7) L Lipase 422 U/L (73-393) H 365 U/L (73-393) Urine Color Pale yellow Urine Appearance Slightly cloudy Urine pH 5 (4.5-8.0) Urine Specific [place] 1.020 (1.005-1.035) Urine Protein Negative (NEGATIVE) Urine Glucose (UA) Negative (NEGATIVE) Urine Ketones Negative (NEGATIVE) Urine Blood Negative (NEGATIVE) Urine Nitrite Negative (NEGATIVE) Urine Bilirubin Negative (NEGATIVE) Urine Urobilinogen Normal MG/DL (0.0-1.0) Urine Leukocyte Esterase 1+ (NEGATIVE) H Urine RBC 0-2 /HPF (0 - 2) Urine WBC 2-4 /HPF (0 - 2) Urine Squamous Epithelial Cells Moderate /LPF (NONE/OCC) H Urine Bacteria Moderate /HPF (NONE) H Urine HCG, Qualitative Negative (NEGATIVE) Urine Opiates Screen Negative (NEGATIVE) Urine Barbiturates Screen Negative (NEGATIVE) Phencyclidine (PCP) Screen Negative (NEGATIVE) Urine Amphetamines Screen Negative (NEGATIVE) Urine Benzodiazepines Screen Negative (NEGATIVE) Urine Cocaine Screen Negative (NEGATIVE) Urine Marijuana (THC) Screen Negative (NEGATIVE) Triglycerides Level 65 MG/DL (30-150) Cholesterol Level 210 MG/DL (< 200) H LDL Cholesterol 158 mg/dL (<100) H HDL Cholesterol 33 MG/DL (40-60) L Cholesterol/HDL Ratio 6.4 (3.3-4.4) H Microbiology Date/Time Source Procedure Growth Status 03/13/19 19:00 Urine,Clean Catch Urine Culture - Preliminary NO GROWTH Resulted Jamarcus Perla MD Mar 14, 2019 12:14
[2019-03-14] MEDS ORDERED: Isovue-300 100ml vial INJ PRN (12:15)
--- NOTE | 2019-03-14 12:52 | Diagnostic Imaging Report ---
Indication: Dyspnea Comparison: 06/23/2017 A single view chest radiograph was obtained. Findings: Cardiomediastinal appearance is within normal limits for age. The lungs are clear. Pulmonary vascularity is appropriate. The diaphragmatic contour is smooth and costophrenic angles are sharp. No pleural effusions are identified. The bones are unremarkable. Impression: No acute findings
--- NOTE | 2019-03-14 12:56 | Diagnostic Imaging Report ---
Indication: left shoulder pain Findings: 3 views of the left shoulder were obtained. Alignment of the left shoulder is normal. No acute fracture is identified. Soft tissues are unremarkable. Impression: No acute injury
--- NOTE | 2019-03-14 15:17 | Consultation ---
History of Present Illness General Chief Complaint: Chest Pain Referring physician: MALLY WASHBURN Reason for Consultation: PANCREATITIS Present Illness Allergies: Coded Allergies: METFORMIN (Verified Allergy, Unknown, Rash, 03/13/19) PENICILLINS (Unverified Allergy, Unknown, 12/07/14) TRAMADOL (Verified Allergy, Unknown, Rash, 03/13/19) Medication History Scheduled Baclofen* (Baclofen*), 10 MG ORAL THREE TIMES A DAY Ibuprofen* (Motrin*), 600 MG ORAL THREE TIMES A DAY Naproxen* (Naproxen*), 500 MG ORAL TWICE A DAY, (Reported) Spironolact/Hydrochlorothiazid (Aldactazide 25-25 Tablet), 1 TAB ORAL DAILY, ( Reported) Scheduled PRN Ibuprofen* (Motrin*), 600 MG ORAL Q6H PRN for For Pain Tramadol Hcl* (Ultram*), 50 MG ORAL Q6H PRN for For Pain Tramadol Hcl* (Ultram*), 50 MG ORAL Q6H PRN for For Pain Miscellaneous Medications [none], (Reported) Discontinued Medications Gabapentin* (Gabapentin*), 600 MG ORAL THREE TIMES A DAY, (Reported) Discontinued Reason: Pt stopped taking med [employer] Arm Brace (Elbow Strap), 1 EACH , (DME) Patient History Healthcare decision maker Resuscitation status Full Code Advanced Directive on File Physical Exam Last 24 Hour Vital Signs Date Time Temp Pulse Resp B/P (MAP) Pulse Ox O2 Delivery O2 Flow Rate FiO2 03/14/19 12:00 87 03/14/19 12:00 98.6 89 18 127/89 (102) 99 03/14/19 09:49 100 03/14/19 08:42 Room Air 03/14/19 08:00 98.1 99 18 124/81 (95) 98 03/14/19 04:00 104 03/14/19 04:00 98.1 104 18 123/77 (92) 100 03/13/19 23:21 Room Air 03/13/19 23:21 100 03/13/19 23:21 98.6 100 18 133/73 (93) 94 03/13/19 23:10 98.3 100 16 125/67 96 Room Air 03/13/19 23:10 98.4 100 16 125/65 95 Room Air 03/13/19 22:00 98.3 72 16 131/65 96 Room Air 03/13/19 21:30 98.3 03/13/19 20:12 98.3 03/13/19 20:03 98.3 74 15 131/65 96 Room Air 03/13/19 18:29 98.3 03/13/19 17:42 96 18 Room Air 03/13/19 17:42 98.2 78 15 125/62 94 Room Air 03/13/19 17:32 98.2 96 18 138/94 (109) 94 Room Air Laboratory Tests Test 03/13/19 17:55 03/13/19 19:00 03/14/19 05:50 White Blood Count 7.6 K/UL (4.8-10.8) Red Blood Count 4.87 M/UL (4.20-5.40) Hemoglobin 13.7 G/DL (12.0-16.0) Hematocrit 41.8 % (37.0-47.0) Mean Corpuscular Volume 86 FL (80-99) Mean Corpuscular Hemoglobin 28.1 PG (27.0-31.0) Mean Corpuscular Hemoglobin Concent 32.8 G/DL (32.0-36.0) Red Cell Distribution Width 12.3 % (11.6-14.8) Platelet Count 275 K/UL (150-450) Mean Platelet Volume 7.3 FL (6.5-10.1) Neutrophils (%) (Auto) 46.2 % (45.0-75.0) Lymphocytes (%) (Auto) 42.3 % (20.0-45.0) Monocytes (%) (Auto) 6.4 % (1.0-10.0) Eosinophils (%) (Auto) 3.4 % (0.0-3.0) H Basophils (%) (Auto) 1.7 % (0.0-2.0) Prothrombin Time 10.5 SEC (9.30-11.50) Prothromb Time International Ratio 1.0 (0.9-1.1) Activated Partial Thromboplast Time 27 SEC (23-33) Sodium Level 139 MMOL/L (136-145) Potassium Level 3.7 MMOL/L (3.5-5.1) Chloride Level 102 MMOL/L (98-107) Carbon Dioxide Level 28 MMOL/L (21-32) Anion Gap 9 mmol/L (5-15) Blood Urea Nitrogen 14 mg/dL (7-18) Creatinine 1.1 MG/DL (0.55-1.30) Estimat Glomerular Filtration Rate > 60 mL/min (>60) Glucose Level 223 MG/DL (74-106) H Calcium Level 9.6 MG/DL (8.5-10.1) Total Bilirubin 0.3 MG/DL (0.2-1.0) Aspartate Amino Transf (AST/SGOT) 16 U/L (15-37) Alanine Aminotransferase (ALT/SGPT) 32 U/L (12-78) Alkaline Phosphatase 68 U/L (46-116) Total Creatine Kinase 126 U/L (26-308) Troponin I 0.000 ng/mL (0.000-0.056) 0.000 ng/mL (0.000-0.056) Pro-B-Type Natriuretic Peptide 9 pg/mL (0-125) Total Protein 8.9 G/DL (6.4-8.2) H Albumin 3.5 G/DL (3.4-5.0) Globulin 5.4 g/dL Albumin/Globulin Ratio 0.6 (1.0-2.7) L Lipase 422 U/L (73-393) H 365 U/L (73-393) Urine Color Pale yellow Urine Appearance Slightly cloudy Urine pH 5 (4.5-8.0) Urine Specific [place] 1.020 (1.005-1.035) Urine Protein Negative (NEGATIVE) Urine Glucose (UA) Negative (NEGATIVE) Urine Ketones Negative (NEGATIVE) Urine Blood Negative (NEGATIVE) Urine Nitrite Negative (NEGATIVE) Urine Bilirubin Negative (NEGATIVE) Urine Urobilinogen Normal MG/DL (0.0-1.0) Urine Leukocyte Esterase 1+ (NEGATIVE) H Urine RBC 0-2 /HPF (0 - 2) Urine WBC 2-4 /HPF (0 - 2) Urine Squamous Epithelial Cells Moderate /LPF (NONE/OCC) H Urine Bacteria Moderate /HPF (NONE) H Urine HCG, Qualitative Negative (NEGATIVE) Urine Opiates Screen Negative (NEGATIVE) Urine Barbiturates Screen Negative (NEGATIVE) Phencyclidine (PCP) Screen Negative (NEGATIVE) Urine Amphetamines Screen Negative (NEGATIVE) Urine Benzodiazepines Screen Negative (NEGATIVE) Urine Cocaine Screen Negative (NEGATIVE) Urine Marijuana (THC) Screen Negative (NEGATIVE) Triglycerides Level 65 MG/DL (30-150) Cholesterol Level 210 MG/DL (< 200) H LDL Cholesterol 158 mg/dL (<100) H HDL Cholesterol 33 MG/DL (40-60) L Cholesterol/HDL Ratio 6.4 (3.3-4.4) H Microbiology Date/Time Source Procedure Growth Status 03/13/19 19:00 Urine,Clean Catch Urine Culture - Preliminary NO GROWTH Resulted Height (Feet): 5 Height (Inches): 5.00 Weight (Pounds): 278 Medications Current Medications Medications (Trade) Dose Ordered Sig/Bret Route PRN Reason Start Time Stop Time Status Last Admin Dose Admin Acetaminophen (Tylenol) 650 mg Q4H PRN ORAL Mild Pain/Temp > 100.5 03/14/19 00:00 04/13/19 00:00 03/14/19 13:24 Iopamidol (Isovue-300 100ml) 100 ml NOW PRN INJ Radiology Procedure 03/14/19 12:15 03/16/19 12:14 Lidocaine (Lidoderm 5% PATCH) 1 patch DAILY TDERMAL 03/13/19 20:30 04/12/19 20:29 03/14/19 08:28 Spironolactone (Aldactone) 25 mg DAILY ORAL 03/14/19 09:00 04/13/19 08:59 03/14/19 08:27 Assessment/Plan Assessment/Plan: Hematology Consultation RFA: Chest Pain Referring physician: MALLY WASHBURN Reason for Consultation: Hyperproteinemia DOS: 03/14/19 ID 48 y old female states that her hip the patient presents with left-sided chest pain. It began while she was riding in a car with her sister. She was sitting down. She feels that sharp and stabbing in the upper left side of her chest. Somewhat pleuritic and radiates down her left arm slightly. She has a history of hypertension. She is on Spironolactone and hydrochlorothiazide. She has had a hip replacement. The pain is less than that however is severe. She rates it 8/10 at this time. She denies any fever or productive cough. She has had some coughing over the last few days. She has a history of asthma but does not use an inhaler routinely and does not have one at this time. She has not heard herself wheezing. Apparently she was doing heavy lifting yesterday. Patient denies dysuria. There is no diarrhea. There is no calf pain. Her last period ended 2 days ago and was normal for her. GI consulted for pancreatitis. Cbc is wnl but noted to have a high protien elevated Home Meds Active Scripts Baclofen* (BACLOFEN*) 10 Mg Tablet, 10 MG ORAL THREE TIMES A DAY, #15 TAB Prov:TERZIAN,SHELLY P.A. 01/26/17 Arm Brace (ELBOW STRAP) 1 Each Each, 1 EACH MC, #1 Prov:TERZIAN,SHELLY P.A. 01/24/17 Tramadol Hcl* (ULTRAM*) 50 Mg Tablet, 50 MG ORAL Q6H PRN for For Pain, #10 TAB 0 Refills Prov:TERZIAN,SHELLY P.A. 01/24/17 Ibuprofen* (MOTRIN*) 600 Mg Tablet, 600 MG ORAL Q6H PRN for For Pain, #30 TAB Prov:TERZIAN,SHELLY P.A. 01/24/17 Tramadol Hcl* (ULTRAM*) 50 Mg Tablet, 50 MG ORAL Q6H PRN for For Pain, #15 TAB 0 Refills Prov:Levy Millan MD 09/10/16 Ibuprofen* (MOTRIN*) 600 Mg Tablet, 600 MG ORAL THREE TIMES A DAY, #30 TAB Prov:Kamilla Buckner 02/12/16 Reported Medications Naproxen* (NAPROXEN*) 500 Mg Tablet, 500 MG ORAL TWICE A DAY, TAB 02/12/16 Spironolact/Hydrochlorothiazid (ALDACTAZIDE 25-25 TABLET) 1 Each Tablet, 1 TAB ORAL DAILY, TAB 02/12/16 [none] No Conflict Check 08/29/13 Discontinued Reported Medications Gabapentin* (GABAPENTIN*) 600 Mg Tablet, 600 MG ORAL THREE TIMES A DAY, TAB 02/12/16 Med list reviewed/reconciled: Yes Allergies: Coded Allergies: METFORMIN (Verified Allergy, Unknown, Rash, 03/13/19) PENICILLINS (Unverified Allergy, Unknown, 12/07/14) TRAMADOL (Verified Allergy, Unknown, Rash, 03/13/19) Patient History History Provided By: Patient, Medical Record [facility] Narrative Past Medical History: see triage record Past Surgical History: other - Hip surgery Social History: Denies: smoking Social History Narrative With her sister Last Menstrual Period: 03/10/19 Reviewed Nursing Documentation: PMH: Agreed; PSxH: Agreed Social History: Denies: smoking, alcohol use, drug use, other Review ofs systems: negative except mentioned in HPI Physical Exam Vital Signs Date Time Temp Pulse Resp B/P (MAP) Pulse Ox O2 Delivery O2 Flow Rate FiO2 03/13/19 17:32 98.2 96 18 138/94 (109) 94 Room Air Sp02 EP Interpretation: reviewed, normal Labs Laboratory Tests Test 03/13/19 17:55 03/13/19 19:00 03/14/19 05:50 White Blood Count 7.6 K/UL (4.8-10.8) Red Blood Count 4.87 M/UL (4.20-5.40) Hemoglobin 13.7 G/DL (12.0-16.0) Hematocrit 41.8 % (37.0-47.0) Mean Corpuscular Volume 86 FL (80-99) Mean Corpuscular Hemoglobin 28.1 PG (27.0-31.0) Mean Corpuscular Hemoglobin Concent 32.8 G/DL (32.0-36.0) Red Cell Distribution Width 12.3 % (11.6-14.8) Platelet Count 275 K/UL (150-450) Mean Platelet Volume 7.3 FL (6.5-10.1) Neutrophils (%) (Auto) 46.2 % (45.0-75.0) Lymphocytes (%) (Auto) 42.3 % (20.0-45.0) Monocytes (%) (Auto) 6.4 % (1.0-10.0) Eosinophils (%) (Auto) 3.4 % (0.0-3.0) H Basophils (%) (Auto) 1.7 % (0.0-2.0) Prothrombin Time 10.5 SEC (9.30-11.50) Prothromb Time International Ratio 1.0 (0.9-1.1) Activated Partial Thromboplast Time 27 SEC (23-33) Sodium Level 139 MMOL/L (136-145) Potassium Level 3.7 MMOL/L (3.5-5.1) Chloride Level 102 MMOL/L (98-107) Carbon Dioxide Level 28 MMOL/L (21-32) Anion Gap 9 mmol/L (5-15) Blood Urea Nitrogen 14 mg/dL (7-18) Creatinine 1.1 MG/DL (0.55-1.30) Estimat Glomerular Filtration Rate > 60 mL/min (>60) Glucose Level 223 MG/DL (74-106) H Calcium Level 9.6 MG/DL (8.5-10.1) Total Bilirubin 0.3 MG/DL (0.2-1.0) Aspartate Amino Transf (AST/SGOT) 16 U/L (15-37) Alanine Aminotransferase (ALT/SGPT) 32 U/L (12-78) Alkaline Phosphatase 68 U/L (46-116) Total Creatine Kinase 126 U/L (26-308) Troponin I 0.000 ng/mL (0.000-0.056) 0.000 ng/mL (0.000-0.056) Pro-B-Type Natriuretic Peptide 9 pg/mL (0-125) Total Protein 8.9 G/DL (6.4-8.2) H Albumin 3.5 G/DL (3.4-5.0) Globulin 5.4 g/dL Albumin/Globulin Ratio 0.6 (1.0-2.7) L Lipase 422 U/L (73-393) H Pending Urine Color Pale yellow Urine Appearance Slightly cloudy Urine pH 5 (4.5-8.0) Urine Specific [place] 1.020 (1.005-1.035) Urine Protein Negative (NEGATIVE) Urine Glucose (UA) Negative (NEGATIVE) Urine Ketones Negative (NEGATIVE) Urine Blood Negative (NEGATIVE) Urine Nitrite Negative (NEGATIVE) Urine Bilirubin Negative (NEGATIVE) Urine Urobilinogen Normal MG/DL (0.0-1.0) Urine Leukocyte Esterase 1+ (NEGATIVE) H Urine RBC 0-2 /HPF (0 - 2) Urine WBC 2-4 /HPF (0 - 2) Urine Squamous Epithelial Cells Moderate /LPF (NONE/OCC) H Urine Bacteria Moderate /HPF (NONE) H Urine HCG, Qualitative Negative (NEGATIVE) Urine Opiates Screen Negative (NEGATIVE) Urine Barbiturates Screen Negative (NEGATIVE) Phencyclidine (PCP) Screen Negative (NEGATIVE) Urine Amphetamines Screen Negative (NEGATIVE) Urine Benzodiazepines Screen Negative (NEGATIVE) Urine Cocaine Screen Negative (NEGATIVE) Urine Marijuana (THC) Screen Negative (NEGATIVE) Triglycerides Level Pending Cholesterol Level Pending LDL Cholesterol Pending HDL Cholesterol Pending Cholesterol/HDL Ratio Pending PE: Vitals: reviewed General Appearance: NAD HEENT: normocephalic, atraumatic Neck: non-tender, normal alignment Respiratory/Chest: nromal breath sounds bilaterally Cardiovascular/Chest: normal peripheral pulses, normal rate Abdomen: normal bowel sounds, soft, nontender Extremities: normal range of motion ROS: Constitutional: No fever, no chills, no night sweats, no fatigue Skin: No rashes, lumps, itchiness, dryness HEENT: No NEVAREZ, ear ache, visual changes, double vision, nosebleeds Breasts: No lumps, pain, discharge Pulmonary: No cough, sputum, shortness of breath, coughing up blood Cardiovascular: No chest pain, tightness, palpitations, syncope, PND GI: No nausea, vomiting, diarrhea, melena, hematochezia, change in appetite, : No dysuria, frequency, urgency, urinary incontinence, foamy urine Musculoskeletal: No joint swelling or muscle pain, trauma, back pain Neurologic: No dizziness, fainting, seizures, changes in smell or taste Psychiatric: No nervousness, stress, or depression, anxiety, hallucination Current Medications Current Medications Medications (Trade) Dose Ordered Sig/Bret Route PRN Reason Start Time Stop Time Status Last Admin Dose Admin Acetaminophen (Tylenol) 650 mg Q4H PRN ORAL Mild Pain/Temp > 100.5 03/14/19 00:00 04/13/19 00:00 03/14/19 08:02 Lidocaine (Lidoderm 5% PATCH) 1 patch DAILY TDERMAL 03/13/19 20:30 04/12/19 20:29 03/14/19 08:28 Spironolactone (Aldactone) 25 mg DAILY ORAL 03/14/19 09:00 04/13/19 08:59 03/14/19 08:27 Assessment and Recs: # Hyperproteinemia with decreased albumin -- this is a dissociation that is abnormal --> obtain SPEP (serum protein electrophoresis) and UPEP (urine protein electrophoresis) if spep negative --> if above results in a m-spike or abnormally enhanced protein, will need to send off immunofixation serum/urine --> in the case of a m-spike or abnormally enhanced protein, will obtain a bone marrow biopsy # Pancreatitis with abd pain --> No plans for GI procedures at this time --> Symptomatic treatment --> Advance diet as tolerated # Musculoskeletal pain --> on nsaids as needed # HTN -- sbp goal is <140 --> per cards, have evaluated # HL on statin The timing of this note does not necessarily reflect the time of the patient was seen. GREATLY APPRECIATE CONSULTATION. Rafael Benjamin MD Mar 14, 2019 15:17
--- NOTE | 2019-03-14 15:19 | Diagnostic Imaging Report ---
Indication: Chest pain Technique: Continuous helical transaxial imaging of the chest was obtained from the thoracic inlet to the upper abdomen after intravenous nonionic contrast administration. Coronal 2-D reformats were also obtained. Automatic Exposure Control was utilized. Total Dose length Product (DLP): 1342.[address] Dose Index Volume (CTDIvol): 35.79 mGy Comparison: none Findings: Study is limited by large body habitus. There is a hiatal hernia present. No adenopathy, pleural or pericardial effusions are identified. The heart is grossly unremarkable. The lungs appear clear. No consolidative opacities or interstitial disease identified. The visualized part of the upper abdomen is unremarkable again with some limitations. IMPRESSION: No acute findings. Significant limitation due to body habitus. Hiatal hernia The CT scanner at [facility] is accredited by the [employer] and the scans are performed using dose optimization techniques as appropriate to a performed exam including Automatic Exposure control.
--- NOTE | 2019-03-14 15:33 | Cardiology Report ---
APPROVED REPORT EKG Measurement Heart [id number] Normal sinus rhythm Possible Anterior infarct, age undetermined Abnormal ECG
[2019-03-14 16:00] VITALS: BP 130/86
--- NOTE | 2019-03-14 16:00 | Consultation ---
DATE OF CONSULTATION: 03/14/2019 INFECTIOUS DISEASE CONSULT CONSULTING PHYSICIAN: Zeeshan Crystal M.D. PRIMARY ATTENDING: Jes Boyd M.D. REASON FOR CONSULT: Elevated lipase, pancreatitis. HISTORY OF PRESENT ILLNESS: This is a 48-year-old female admitted last night complaining of left side chest and shoulder pain. The patient states that she lifted heavy objects yesterday and had shoulder pain mainly. She was also found to have diabetes mellitus. PAST MEDICAL HISTORY: Has history of hypertension, asthma, morbid obesity. Has history of left total hip replacement. Has degenerative disc disease. ALLERGIES: Allergic to metformin, penicillin, tramadol. MEDICATIONS: Aldactone, Tylenol. Got a dose of hydromorphone and Percocet in the ER. SOCIAL HISTORY: Single. She is disabled. Nonsmoker. Does not use drugs. Drinks alcohol occasionally. Has 1 child. REVIEW OF SYSTEMS: No fever. No chills. Has left shoulder pain. Uses a sling since last night and currently the pain is improved with pain medication. No nausea. No vomiting. No dysuria. PHYSICAL EXAMINATION: VITAL SIGNS: Temperature 98.1, pulse 99, blood pressure 124/81. GENERAL APPEARANCE: Obese, no acute distress. HEAD AND NECK: [place] conjunctivae. No oral lesion. HEART: S1-S2 regular. LUNGS: Clear. ABDOMEN: Obese, soft, nontender. EXTREMITIES: No edema. Has left arm sling. LABORATORY AND DIAGNOSTIC DATA: Sodium 139, potassium 3.7, chloride 102, bicarbonate 28, BUN 14, creatinine 1.1, glucose is 223. Troponin I measurement x2 are negative. Lipase was 422. Urine culture so far negative. UA showed normal WBC and RBC, and 1+ leukocyte esterase. IMPRESSION: Elevation of lipase, may have mild pancreatitis. The patient denies any recent alcohol use. Has left shoulder pain, chest pain that seems to be atypical. Has morbid obesity, hypertension. RECOMMENDATIONS: Observe off antibiotic. The patient will be seen by GI specialist , will order left shoulder x-ray. At the end of my exam, I thank Dr. Boyd for involving me in the care of this patient. Zeeshan Crystal M.D. DR: JEB JOB#: [id number] CC: ANURADHA
--- NOTE | 2019-03-14 17:15 | Consultation ---
DATE OF CONSULTATION: 03/14/2019 CARDIOLOGY CONSULTATION CONSULTING PHYSICIAN: Jamarcus Perla M.D. REFERRING PHYSICIAN: Jes Boyd M.D. REASON FOR CONSULTATION: Chest and arm pain. HISTORY OF PRESENT ILLNESS: The patient is a 48-year-old lady with history of obesity, hypertension, and diabetes, who presented to the emergency room and there started having sharp stabbing upper left of the chest and arm pain. The patient stated the pain was so severe she could hold the arm only in one position. The patient denies any prior myocardial infarction or coronary artery disease or congestive heart failure. The patient has history of asthma, but has not been taking inhaler routinely. The patient's EKG showed no active ischemic changes. REVIEW OF SYSTEMS: Negative other what was mentioned in the history of present illness. PAST MEDICAL HISTORY: As mentioned above. FAMILY HISTORY: Noncontributory. SOCIAL HISTORY: She lives at home. Does not smoke or drink alcohol. PHYSICAL EXAMINATION: VITAL SIGNS: Blood pressure is 124/81, pulse 100, respirations 18, and temperature 98.1. HEAD AND NECK: Showed no JVD. LUNGS: Clear. CARDIOVASCULAR: Shows regular S1 and S2 with no gallop or murmur. ABDOMEN: Soft. EXTREMITIES: No pitting edema. LABORATORY AND DIAGNOSTIC DATA: 1. White count 7.2, hemoglobin , hematocrit 41.8, and platelets 275. Sodium 139, potassium 3.7, BUN 14, and creatinine 1.1. Glucose 223. Troponin negative x2. Amylase is 158. Lipase is 422. Urine toxicology screen is negative. IMPRESSION AND PLAN: 1. Chest pain. Her primary complaint is the left arm pain and shoulder pain. It is very hard for her to move the shoulder. This is not typical of cardiac pain. The patient is already ruled out for myocardial infarction by serial cardiac enzymes, EKG is nonischemic. We will get an echocardiogram to evaluate for ejection fraction and wall motion abnormality. 2. Hypertension. The patient is on Aldactone 25 mg daily. Home medications will be continued. 3. Possible pancreatitis with elevated lipase. Further evaluation by Dr. Fields. Thank you very much for allowing me to participate in the care of this patient. Please do not hesitate to contact for any questions regarding my evaluation. Jamarcus Perla M.D. DR: BRADEN JOB#: [id number] CC:
--- NOTE | 2019-03-14 17:55 | Consultation ---
History of Present Illness General Date patient seen: Mar 14, 2019 Present Illness Allergies: Coded Allergies: METFORMIN (Verified Allergy, Unknown, Rash, 03/13/19) PENICILLINS (Unverified Allergy, Unknown, 12/07/14) TRAMADOL (Verified Allergy, Unknown, Rash, 03/13/19) Medication History Scheduled Baclofen* (Baclofen*), 10 MG ORAL THREE TIMES A DAY Ibuprofen* (Motrin*), 600 MG ORAL THREE TIMES A DAY Naproxen* (Naproxen*), 500 MG ORAL TWICE A DAY, (Reported) Spironolact/Hydrochlorothiazid (Aldactazide 25-25 Tablet), 1 TAB ORAL DAILY, ( Reported) Scheduled PRN Ibuprofen* (Motrin*), 600 MG ORAL Q6H PRN for For Pain Tramadol Hcl* (Ultram*), 50 MG ORAL Q6H PRN for For Pain Tramadol Hcl* (Ultram*), 50 MG ORAL Q6H PRN for For Pain Miscellaneous Medications [none], (Reported) Discontinued Medications Gabapentin* (Gabapentin*), 600 MG ORAL THREE TIMES A DAY, (Reported) Discontinued Reason: Pt stopped taking [employer] Arm Brace (Elbow Strap), 1 EACH , (DME) Patient History Healthcare decision maker Resuscitation status Full Code Advanced Directive on File Physical Exam Last 24 Hour Vital Signs Date Time Temp Pulse Resp B/P (MAP) Pulse Ox O2 Delivery O2 Flow Rate FiO2 03/14/19 16:00 98.1 103 18 130/86 (101) 99 03/14/19 12:00 87 03/14/19 12:00 98.6 89 18 127/89 (102) 99 03/14/19 09:49 100 03/14/19 08:42 Room Air 03/14/19 08:00 98.1 99 18 124/81 (95) 98 03/14/19 04:00 104 03/14/19 04:00 98.1 104 18 123/77 (92) 100 03/13/19 23:21 Room Air 03/13/19 23:21 100 03/13/19 23:21 98.6 100 18 133/73 (93) 94 03/13/19 23:10 98.3 100 16 125/67 96 Room Air 03/13/19 23:10 98.4 100 16 125/65 95 Room Air 03/13/19 22:00 98.3 72 16 131/65 96 Room Air 03/13/19 21:30 98.3 03/13/19 20:12 98.3 03/13/19 20:03 98.3 74 15 131/65 96 Room Air 03/13/19 18:29 98.3 Laboratory Tests Test 03/13/19 19:00 03/14/19 05:50 Urine Color Pale yellow Urine Appearance Slightly cloudy Urine pH 5 (4.5-8.0) Urine Specific [place] 1.020 (1.005-1.035) Urine Protein Negative (NEGATIVE) Urine Glucose (UA) Negative (NEGATIVE) Urine Ketones Negative (NEGATIVE) Urine Blood Negative (NEGATIVE) Urine Nitrite Negative (NEGATIVE) Urine Bilirubin Negative (NEGATIVE) Urine Urobilinogen Normal MG/DL (0.0-1.0) Urine Leukocyte Esterase 1+ (NEGATIVE) H Urine RBC 0-2 /HPF (0 - 2) Urine WBC 2-4 /HPF (0 - 2) Urine Squamous Epithelial Cells Moderate /LPF (NONE/OCC) H Urine Bacteria Moderate /HPF (NONE) H Urine HCG, Qualitative Negative (NEGATIVE) Urine Opiates Screen Negative (NEGATIVE) Urine Barbiturates Screen Negative (NEGATIVE) Phencyclidine (PCP) Screen Negative (NEGATIVE) Urine Amphetamines Screen Negative (NEGATIVE) Urine Benzodiazepines Screen Negative (NEGATIVE) Urine Cocaine Screen Negative (NEGATIVE) Urine Marijuana (THC) Screen Negative (NEGATIVE) Troponin I 0.000 ng/mL (0.000-0.056) Total Protein (PEP) Pending Albumin (PEP) Pending Globulin (PEP) Pending Albumin/Globulin Ratio Pending [id number] Pending [id number] Pending Beta Globulins Pending Beta Gamma Globulin Pending PEP Abnormal Protein Bands Pending Protein Electrophoresis Interpret Pending Triglycerides Level 65 MG/DL (30-150) Cholesterol Level 210 MG/DL (< 200) H LDL Cholesterol 158 mg/dL (<100) H HDL Cholesterol 33 MG/DL (40-60) L Cholesterol/HDL Ratio 6.4 (3.3-4.4) H Lipase 365 U/L (73-393) Microbiology Date/Time Source Procedure Growth Status 03/13/19 19:00 Urine,Clean Catch Urine Culture - Preliminary NO GROWTH Resulted Height (Feet): 5 Height (Inches): 5.00 Weight (Pounds): 278 Medications Current Medications Medications (Trade) Dose Ordered Sig/Bret Route PRN Reason Start Time Stop Time Status Last Admin Dose Admin Acetaminophen (Tylenol) 650 mg Q4H PRN ORAL Mild Pain/Temp > 100.5 03/14/19 00:00 04/13/19 00:00 03/14/19 13:24 Iopamidol (Isovue-300 100ml) 100 ml NOW PRN INJ Radiology Procedure 03/14/19 12:15 03/16/19 12:14 Ketorolac Tromethamine (Toradol 30mg) 30 mg EVERY 8 HOURS IV 03/14/19 22:00 03/15/19 14:01 Lidocaine (Lidoderm 5% PATCH) 1 patch DAILY TDERMAL 03/13/19 20:30 04/12/19 20:29 03/14/19 08:28 Spironolactone (Aldactone) 25 mg DAILY ORAL 03/14/19 09:00 04/13/19 08:59 03/14/19 08:27 Assessment/Plan Assessment/Plan: (1) Left shoulder pain (2) Left shoulder sprain r/o tendon tear seen dictated Ced Oh Mar 14, 2019 17:55
--- NOTE | 2019-03-14 19:07 | NUR ---
HAND-OFF: Report given to Anthony. Patient is in stable condition.
--- NOTE | 2019-03-14 19:08 | NUR ---
NURSE NOTES: Got report from Dorothea GARCIA. Pt in stable condition. Denies any pain. No s/s of distress or discomfort noted. Pt resting in bed comfortably. Bed in low and locked position, call light within reach, bedside table within reach. Continue to monitor.
[2019-03-14 20:00] VITALS: BP 140/90
[2019-03-14] MEDS: Tylenol #3 tab (300mg/30mg) ORAL PRN (21:09)
[2019-03-14] MEDS: Ketorolac 30mg Inj IV SCH (21:53)
--- NOTE | 2019-03-14 23:45 | History and Physical Report ---
DATE OF ADMISSION: 03/13/2019 HISTORY OF PRESENT ILLNESS: The patient is admitted for basically chest pain, elevated LFT, and pancreatitis. The patient is also complaining of left shoulder pain since yesterday and it happened right after she lifted something heavy, so most likely this is to due to the lifting of the heavy things that she did. The patient also has history of hypertension. Denies nausea, vomiting, or diarrhea. Denies shortness of breath. Denies palpitation. Denies diaphoresis. PAST MEDICAL HISTORY: Chronic pain syndrome, history of asthma, history of hypertension, history of degenerative joint disease. PAST SURGICAL HISTORY: Left hip replacement. ALLERGIES: To penicillin, metformin, tramadol. MEDICATIONS: , hydrochlorothiazide, baclofen. FAMILY HISTORY: Noncontributory. SOCIAL HISTORY: The patient denies smoking, alcohol, or illicit drugs. REVIEW OF SYSTEMS: HEENT: Denies headaches. RESPIRATORY: Denies shortness of breath. Denies cough. CARDIOVASCULAR: No orthopnea. Reports chest pain and left shoulder pain x1 day after lifting heavy object. EXTREMITIES: Denies pain in lower extremities. CENTRAL NERVOUS SYSTEM: Denies change in speech pattern. PHYSICAL EXAMINATION: VITAL SIGNS: Temperature is 98.1, pulse is 104, blood pressure is 123/77. HEENT: PERRLA. NECK: Supple. No lymphadenopathy. CHEST: Clear to auscultation. CARDIOVASCULAR: Tachycardic. GASTROINTESTINAL: Soft, nontender, nondistended. No organomegaly. EXTREMITIES: No edema. Moves all four extremities. NEUROLOGIC: Sensory intact. Reflexes equal on both sides. Moves all four extremities. LABORATORY DATA: WBC of 7.6, hemoglobin 13.7, platelets 275. Sodium 139, potassium 3.7, BUN of 14, creatinine 1.1, glucose of 223. ASSESSMENT AND PLAN: Chest pain and left shoulder pain after lifting something heavy object and pancreatitis. I have basically asked Dr. Zeeshan Crystal, Dr. Fields, Dr. Humphrey, Dr. Perla, Dr. Pack, and Dr. Membreno to see the patient to rule out rotator cuff injury versus fracture as well as for pain management as well as to rule out acute coronary syndrome as well as for the management of hypertension as well as for pancreatitis. The patient originally NPO. Antibiotics if any per Dr. Zeeshan Crystal. Jes Boyd M.D. DR: MO JOB#: [id number] CC:
[2019-03-15 00:22] VITALS: BP 115/77
--- NOTE | 2019-03-15 01:15 | Consultation ---
DATE OF CONSULTATION: 03/14/2019 CHIEF COMPLAINT: Left shoulder pain. HISTORY OF PRESENT ILLNESS: The patient is a pleasant, 48-year-old female, who presents with complaints of left shoulder pain. The patient reports that she was lifting some bags with books and subsequently had pain in the left shoulder. No trauma. No previous history of any issues the shoulder. PAST MEDICAL HISTORY: Reviewed per intake chart. PAST SURGICAL HISTORY: Reviewed per intake chart. MEDICATIONS: Reviewed per intake chart. PHYSICAL EXAMINATION: EXTREMITIES: Examination shows tenderness to palpation of anterolateral acromion. There is mild swelling. No ecchymosis. Radial and ulnar pulse +2. She does have irritable range of motion and supraspinatus test does elicit pain. There is pain on AC joint. DIAGNOSTIC DATA: Imaging study showed no obvious fracture or dislocation, no soft tissue abnormalities, no subluxation of the joint space, no calcifications. ASSESSMENT: Right shoulder rotator cuff tendonitis. DISCUSSION: At this point, I think she has probably some inflammation along the rotator cuff. What I recommend is cryotherapy to the shoulder as well as Toradol 30 mg every 8 hours x3 doses. She can use the sling for comfort and then discontinue it, begin active range of motion. If she still has issues, then she can get MRI as an outpatient. Please re-consult ksenia. Himanshu Membreno M.D. DR: Marisabel JOB#: [id number] CC:
[2019-03-15 03:56] VITALS: BP 149/79
--- NOTE | 2019-03-15 04:30 | Consultation ---
DATE OF CONSULTATION: 03/14/2019 PAIN MANAGEMENT CONSULTATION CONSULTING PHYSICIAN: Meghan Pack M.D. REFERRING PHYSICIAN: Jes Boyd M.D. PHYSICIAN STAGE RIGGER: Jose Coleman CHIEF COMPLAINT: Pain in the left shoulder. HISTORY OF PRESENT ILLNESS: This is a 48-year-old female, who has been seen on the telemetry floor of [facility] for initial pain management consultation. The patient reports that she has been having left shoulder pain since yesterday. It is a constant pain rated at 6/10. She is describing the pain as a sharp stabbing pressure pain, increased with movement and reduced with medication. At this time, she was admitted under the care of Dr. Boyd due to pancreatitis, being seen by assistant toddler teacher and shearing machine tender to rule out any coronary issues. She had been lifting something heavy at home and felt a sharp pain in her shoulder. An x-ray of the shoulder was ordered showing no fracture and has been seen by the orthopedic surgeon, Dr. Membreno, who has prescribed the patient Toradol 30 mg every 8 hours IV. We were consulted so that the patient would have adequate pain control while here in the hospital. PAST MEDICAL HISTORY: Denies. PAST SURGICAL HISTORY: . SOCIAL HISTORY: Denies. ALLERGIES: Metformin, penicillin, and tramadol. MEDICATIONS: Aspirin. REVIEW OF SYSTEMS: Denies rash, fever, chills, sweating, dizziness, drowsiness, blurred vision, sore throat, or change in her weight. No shortness of breath or chest pain. No nausea, vomiting, diarrhea, or blood in the urine. No bowel or bladder incontinence. No dysuria. She is complaining of left shoulder pain. PHYSICAL EXAMINATION: GENERAL: Alert, awake, and oriented. VITAL SIGNS: Blood pressure 130/86, oxygen saturation 99%, respirations 18, and temperature is 98.1 degrees Fahrenheit. HEENT: PERRLA. NECK: Range of motion is full in all directions. No tenderness. No adenopathy. LUNGS: Clear bilaterally. HEART: S1 and S2 regular. ABDOMEN: Obese. BACK: Range of motion is full in flexion and extension. EXTREMITIES: Left upper extremity range of motion is decreased due to left upper extremity pain. Tenderness to palpation. No cyanosis. No clubbing. No edema. ASSESSMENT AND PLAN: This is a 48-year-old female with left shoulder pain, left shoulder sprain, rule out tendon tear. At this time, the patient is continued on the Toradol and was started on Tylenol No. 3 one tablet every 6 hours as needed for severe pain. We recommend the patient to have MRI of the left shoulder as per the orthopedic surgeon. The patient was discussed with Dr. Pack and Dr. Pack concurred. We will follow the patient. Meghan Pack M.D. MADELEINE Coleman DR: IVA JOB#: [id number] CC: ANURADHA
[2019-03-15] MEDS: Ketorolac 30mg Inj IV SCH (05:45)
[2019-03-15] MEDS: Tylenol #3 tab (300mg/30mg) ORAL PRN (05:45)
[2019-03-15 06:29] LABS: BASOPHILS % (AUTO) 1.6 % (0.0-2.0); EOSINOPHILS % (AUTO) 4.9 % (0.0-3.0); HEMATOCRIT 39.8 % (37.0-47.0); HEMOGLOBIN 12.9 G/DL (12.0-16.0); LYMPHOCYTES % (AUTO) 45.8 % (20.0-45.0); MEAN CORPUSCULAR VOLUME 87 FL (80-99); MONOCYTES % (AUTO) 8.2 % (1.0-10.0); NEUTROPHILS % (AUTO) 39.5 % (45.0-75.0); PLATELET COUNT 261 K/UL (150-450); RED BLOOD COUNT 4.56 M/UL (4.20-5.40); RED CELL DISTRIBUTION WIDTH 12.5 % (11.6-14.8); WHITE BLOOD COUNT 6.9 K/UL (4.8-10.8)
[2019-03-15 06:49] LABS: ANION GAP 7 mmol/L (5-15); BLOOD UREA NITROGEN 17 mg/dL (7-18); CALCIUM 8.9 MG/DL (8.5-10.1); CARBON DIOXIDE 29 MMOL/L (21-32); CHLORIDE 102 MMOL/L (98-107); CHOLESTEROL 196 MG/DL (< 200); HDL CHOLESTEROL 36 MG/DL (40-60); POTASSIUM 4.3 MMOL/L (3.5-5.1); SODIUM 138 MMOL/L (136-145); TRIGLYCERIDES 81 MG/DL (30-150)
--- NOTE | 2019-03-15 07:00 | NUR ---
HAND-OFF: Report given to Haris GARCIA. Endorsed plan of care.
--- NOTE | 2019-03-15 07:02 | General Progress Note ---
Assessment/Plan Problem List: (1) Pancreatitis ICD Codes: K85.90 - Acute pancreatitis without necrosis or infection, unspecified SNOMED: 13676429 (2) Hypertension ICD Codes: I10 - Essential (primary) hypertension SNOMED: 85612958 Qualifiers: Qualified Codes: I10 - Essential (primary) hypertension (3) Back pain ICD Codes: M54.9 - Dorsalgia, unspecified SNOMED: 256395802 Assessment/Plan: tolerating diet on pain meds fu labs dc planning per primary team Subjective ROS Limited/Unobtainable: Yes Allergies: Coded Allergies: METFORMIN (Verified Allergy, Unknown, Rash, 03/13/19) PENICILLINS (Unverified Allergy, Unknown, 12/07/14) TRAMADOL (Verified Allergy, Unknown, Rash, 03/13/19) Objective Last 24 Hour Vital Signs Date Time Temp Pulse Resp B/P (MAP) Pulse Ox O2 Delivery O2 Flow Rate FiO2 03/15/19 06:15 97.9 03/15/19 06:15 97.9 03/15/19 04:20 86 03/15/19 03:56 97.9 94 20 149/79 (102) 97 03/15/19 00:22 98.1 98 20 115/77 (90) 95 03/15/19 00:00 102 03/14/19 21:00 Room Air 03/14/19 20:00 97.7 90 20 140/90 (107) 97 03/14/19 20:00 93 03/14/19 16:00 100 03/14/19 16:00 98.1 103 18 130/86 (101) 99 03/14/19 12:00 87 03/14/19 12:00 98.6 89 18 127/89 (102) 99 03/14/19 09:49 100 03/14/19 08:42 Room Air 03/14/19 08:00 98.1 99 18 124/81 (95) 98 Intake and Output 03/14/19 03/15/19 18:59 06:59 Intake Total 2500 ml 360 ml Balance 2500 ml 360 ml Intake Oral 2500 ml 360 ml # Voids 4 2 Laboratory Tests 03/15/19 05:49: White Blood Count 6.9, Red Blood Count 4.56, Hemoglobin 12.9, Hematocrit 39.8, Mean Corpuscular Volume 87, Mean Corpuscular Hemoglobin 28.3, Mean Corpuscular Hemoglobin Concent 32.4, Red Cell Distribution Width 12.5, Platelet Count 261, Mean Platelet Volume 7.5, Neutrophils (%) (Auto) 39.5L, Lymphocytes (%) (Auto) 45.8H, Monocytes (%) (Auto) 8.2, Eosinophils (%) (Auto) 4.9H, Basophils (%) ( Auto) 1.6, Sodium Level 138, Potassium Level 4.3, Chloride Level 102, Carbon Dioxide Level 29, Anion Gap 7, Blood Urea Nitrogen 17, Creatinine 1.0, Estimat Glomerular Filtration Rate > 60, Glucose Level 205H, Calcium Level 8.9, Triglycerides Level 81, Cholesterol Level 196, LDL Cholesterol 145H, HDL Cholesterol 36L, Cholesterol/HDL Ratio 5.4H, Lipase 663H Height (Feet): 5 Height (Inches): 5.00 Weight (Pounds): 278 General Appearance: alert EENT: normal ENT inspection Neck: supple Cardiovascular: normal rate Respiratory/Chest: lungs clear Abdomen: normal bowel sounds, non tender, soft Extremities: non-tender Bob Fields MD Mar 15, 2019 07:02
[2019-03-15 08:00] VITALS: BP 125/80
[2019-03-15] MEDS: Spironolactone 25mg tab ORAL SCH (09:18)
--- NOTE | 2019-03-15 09:30 | NUR ---
PATIENT ASKED THAT WANT TO LEAVE LOW AND CAN NOT WAIT UNTIL BE SEEN BY HER PHYSICIAN PER PATIENT" IF I DID NOT DISCHARGED YESTERDAY, SO I WILL NOT BE DISCHARGED TODAY." PATIENT SIGNED AMA AT 0930 AM AND LEFT [facility] AT 0930 AM.CONTROLS PROJECT ENGINEER AND IV CATHETER REMOVED PER PROTOCOL. NOTIFIED
--- NOTE | 2019-03-15 12:17 | NUR ---
INSURANCE CLINICALS FAXED TO [facility]: MISSAEL P- [phone] X Rupal F- [phone]....REVIEW/CLINICAL
--- NOTE | 2019-03-15 21:46 | Cardiology Report ---
APPROVED REPORT EKG Measurement Heart [id number] Poor data quality, interpretation may be adversely affected Normal sinus rhythm Possible Inferior infarct, age undetermined Possible Anterior infarct, age undetermined Abnormal ECG
--- NOTE | 2019-03-16 08:08 | Discharge Summary ---
Discharge Summary Discharge Summary _ DATE OF ADMISSION: 03/13/2019 DATE OF DISCHARGE: 03/15/2019 DISCHARGED BY: Dr. Jes Guillen CONSULTANTS: Dr. Elissa Benjamin [facility] COURSE: Patient is a 48-year-old female, who presented to ED due to left shoulder pain after heavy lifting. She had left-sided chest pain. It began while she was riding in a car, while sitting down, she felt a sharp and stabbing in the upper left side of the chest. Pain was somewhat pleuritic and radiated to the left arm. She had a history of hypertension. She denied any fever or productive cough. She had some coughing over the past few days. She has a history of asthma, however does not use inhaler routinely. On evaluation at ED, vital signs were stable. Blood work did not show any leukocytosis, hemoglobin and hematocrit were stable. Electrolytes were normal. Troponin negative. Lipase was elevated to 422. LFTs and bilirubin were normal. Urinalysis was essentially negative. Urine toxicology screen was negative. EKG was in normal sinus rhythm with no acute changes. Chest x-ray did not show any acute disease. She was given Toradol and Percocet. Pain unchanged. Patient complained of nausea and stated that [place] and Percocet did not help. She needed stronger analgesia. She was then given Dilaudid. She was given Reglan and Benadryl. She complained " she cannot use her arm". There was no evidence of stroke. A sling was applied and provided some relief. Due to severity of pain and disability including patient's risk factors, she was admitted to telemetry. Dispatch Clerk was consulted. Cardiac enzymes were negative x2. EKG was nonischemic. She was continued on Aldactone 25 mg for blood pressure support. She was ordered echocardiogram. Patient had elevated lipase. GI was consulted. Patient denied any use of alcohol or intake of fatty foods. She denied any nausea, vomiting, diarrhea or constipation. Diet was advanced as tolerated. She was given symptomatic treatment. She complained of pain to the left shoulder. Orthopedic surgeon was consulted. Examination of the left shoulder showed tenderness to palpation of anterolateral acromion. There was mild swelling. No ecchymosis. Radial and ulnar pulses +2. She had irritable range of motion and supraspinatus test elicited pain. There is pain on AC joint. Imaging studies showed no obvious fracture or dislocation, no soft tissue abnormalities, no subluxation of the joint space, no calcifications. She was diagnosed with right shoulder rotator cuff tendinitis. She was recommended cryotherapy and Toradol every 8 hours for 3 doses. She was advised can use a sling for comfort and discontinue, to begin active range of motion. She was recommended MRI as an outpatient. Pain management was consulted. She was started on Tylenol 3. Medical Transcriptionist was consulted. Patient had hyperproteinemia with decreased albumin. She was tolerating diet well. Full treatment was not carried out as patient left against medical advise. FINAL DIAGNOSES: Musculoskeletal chest pain and left shoulder pain, after heavy lifting Acute pancreatitis Right shoulder rotator cuff tendinitis Hyperproteinemia and decreased albumin Hypertension DISPOSITION: Patient left against medical advise. I have been assigned to complete a discharge summary on this account, I was not involved with the patient's management.--CHARLOTTE Mendoza Jacqueline Robles NP Mar 16, 2019 08:08
--- NOTE | 2019-03-16 10:32 | NUR ---
INSURANCE CLINICALS FAXED TO [facility]: MISSAEL P- [phone] X Rupal F- [phone]....REVIEW/CLINICAL
== END 2019-03-15 09:40 | disposition left against medical advice (07) | DRG 557 ==
LOC: EMR 20:10 → 2E 21:25 → OBSVTOIN 21:25 → EDBEDREQ 22:22
DX: M75.102 Unspecified rotator cuff tear or rupture of left shoulder, not specified as traumatic (principal); K85.90 Acute pancreatitis without necrosis or infection, unspecified; R07.89 Other chest pain; Z88.6 Allergy status to analgesic agent; Z88.0 Allergy status to penicillin; Z88.8 Allergy status to other drugs, medicaments and biological substances; E11.9 Type 2 diabetes mellitus without complications; E66.01 Morbid (severe) obesity due to excess calories; Z96.642 Presence of left artificial hip joint; I10 Essential (primary) hypertension; E88.09 Other disorders of plasma-protein metabolism, not elsewhere classified
CPT/HCPCS: 36415; 71045; 71260; 80048; 80053; 80061; 80307; 81003; 81025; 82550; 83690; 83880; 84165; 84484; 85025; 85610; 85730; 87086; 93005; 96374; 96375; 99285; J2405; J2765

== ENCOUNTER 2019-06-16 09:55 | Emergency (ER) | payer MEDICARE, MEDICAID ==
[~2019-06-16] VITALS: Ht 165.1 cm; Wt 77.1 kg
[2019-06-16 10:06] VITALS: BP 127/58
--- NOTE | 2019-06-16 10:07 | NUR ---
ED Nurse Note: Pt walked in due to right side CP x 1 day with Nausea and vomiting. Denies injury or trauma to her chest. AAO x4 and ambulates with assistance, with non labored breathing.
--- NOTE | 2019-06-16 10:12 | Emergency Room Report ---
History of Present Illness General Chief Complaint: General Complaint Source: Patient, Medical Record Present Illness HPI Patient presents with several different complaints initially complaining of increased nausea Patient reports that 2 days ago she started having nauseous sensation she has now recently developed diffuse body cramping Including the base of both feet Patient has a mild cough denies any chest pain or shortness of breath Denies any diarrhea Patient had a cramping sensation in the suprapubic area denies any recent travel or trauma Denies any focal weakness Allergies: Coded Allergies: METFORMIN (Verified Allergy, Unknown, Rash, 03/13/19) PENICILLINS (Unverified Allergy, Unknown, 12/07/14) TRAMADOL (Verified Allergy, Unknown, Rash, 03/13/19) Patient History Past Medical History: see triage record Now: No Reviewed Nursing Documentation: PMH: Agreed; PSxH: Agreed Nursing Documentation-PMH Hx Hypertension: Yes Hx Asthma: Yes Hx Diabetes: Yes - Type 2 Review of Systems All Other Systems: negative except mentioned in HPI Physical Exam Vital Signs Date Time Temp Pulse Resp B/P (MAP) Pulse Ox O2 Delivery O2 Flow Rate FiO2 06/16/19 09:57 100.0 98 12 128/90 (103) 100 Room Air Sp02 EP Interpretation: reviewed, normal General Appearance: well appearing, no apparent distress Head: normocephalic, atraumatic Eyes: bilateral eye PERRL, bilateral eye EOMI ENT: hearing grossly normal, normal pharynx, TMs + canals normal, uvula midline Neck: full range of motion, supple, no meningismus, no bony tend Respiratory: lungs clear, normal breath sounds, no rhonchi, no respiratory distress, no retraction, no accessory muscle use Cardiovascular #1: normal peripheral pulses, regular rate, rhythm, no edema, no gallop, no JVD, no murmur Gastrointestinal: normal bowel sounds, non tender, soft, no mass, no organomegaly, non-distended, no guarding, no hernia, no pulsatile mass, no rebound Genitourinary: no CVA tenderness Musculoskeletal: normal inspection Neurologic: oriented x3, responsive, die assembler III-XII nml as tested, motor strength/ tone normal, sensory intact Psychiatric: mood/affect normal Skin: no rash Lymphatic: normal inspection, no adenopathy Medical Decision Making Diagnostic Impression: Primary Impression: Nausea Additional Impression: Myalgia ER Course Patient is a fairly complex patient with multiple differential to consideration including but not limited to cardiac cardiopulmonary and vascular emergencies other infectious pathology entertained Dehydration with electrolyte abnormality, Patient's blood work is at baseline levels No obvious infectious process is appreciated Patient does not appear to have findings consistent with any cardiac pathology and is stable for initial conservative outpatient trial Labs Test 06/16/19 10:10 06/16/19 10:40 White Blood Count 7.4 K/UL (4.8-10.8) Red Blood Count 4.90 M/UL (4.20-5.40) Hemoglobin 13.8 G/DL (12.0-16.0) Hematocrit 42.2 % (37.0-47.0) Mean Corpuscular Volume 86 FL (80-99) Mean Corpuscular Hemoglobin 28.2 PG (27.0-31.0) Mean Corpuscular Hemoglobin Concent 32.7 G/DL (32.0-36.0) Red Cell Distribution Width 12.3 % (11.6-14.8) Platelet Count 296 K/UL (150-450) Mean Platelet Volume 6.9 FL (6.5-10.1) Neutrophils (%) (Auto) 39.8 % (45.0-75.0) Lymphocytes (%) (Auto) 44.1 % (20.0-45.0) Monocytes (%) (Auto) 10.3 % (1.0-10.0) Eosinophils (%) (Auto) 4.1 % (0.0-3.0) Basophils (%) (Auto) 1.7 % (0.0-2.0) Sodium Level 136 MMOL/L (136-145) Potassium Level 3.6 MMOL/L (3.5-5.1) Chloride Level 100 MMOL/L (98-107) Carbon Dioxide Level 29 MMOL/L (21-32) Anion Gap 7 mmol/L (5-15) Blood Urea Nitrogen 13 mg/dL (7-18) Creatinine 0.9 MG/DL (0.55-1.30) Estimat Glomerular Filtration Rate > 60 mL/min (>60) Glucose Level 135 MG/DL (74-106) Calcium Level 8.9 MG/DL (8.5-10.1) Total Bilirubin 0.3 MG/DL (0.2-1.0) Aspartate Amino Transf (AST/SGOT) 16 U/L (15-37) Alanine Aminotransferase (ALT/SGPT) 30 U/L (12-78) Alkaline Phosphatase 68 U/L (46-116) Total Creatine Kinase 241 U/L (26-308) Creatine Kinase MB 1.7 NG/ML (0.0-3.6) Creatine Kinase MB Relative Index 0.7 Troponin I 0.000 ng/mL (0.000-0.056) Total Protein 8.4 G/DL (6.4-8.2) Albumin 3.3 G/DL (3.4-5.0) Globulin 5.1 g/dL Albumin/Globulin Ratio 0.6 (1.0-2.7) Lipase 109 U/L (73-393) Urine Color Pale yellow Urine Appearance Clear Urine pH 7 (4.5-8.0) Urine Specific [place] 1.005 (1.005-1.035) Urine Protein Negative (NEGATIVE) Urine Glucose (UA) Negative (NEGATIVE) Urine Ketones Negative (NEGATIVE) Urine Blood Negative (NEGATIVE) Urine Nitrite Negative (NEGATIVE) Urine Bilirubin Negative (NEGATIVE) Urine Urobilinogen Normal MG/DL (0.0-1.0) Urine Leukocyte Esterase Negative (NEGATIVE) Urine HCG, Qualitative Negative (NEGATIVE) Urine Opiates Screen Positive (NEGATIVE) Urine Barbiturates Screen Negative (NEGATIVE) Phencyclidine (PCP) Screen Negative (NEGATIVE) Urine Amphetamines Screen Negative (NEGATIVE) Urine Benzodiazepines Screen Negative (NEGATIVE) Urine Cocaine Screen Negative (NEGATIVE) Urine Marijuana (THC) Screen Negative (NEGATIVE) Rhythm Strip Diag. Results EP Interpretation: yes Rate: 66 Rhythm: NSR, no PVC's, no ectopy Chest X-Ray Diagnostic Results Chest X-Ray Diagnostic Results : Chest X-Ray Ordered: Yes # of Views/Limited/Complete: 1 View Indication: Chest Pain EP Interpretation: Yes Interpretation: no consolidation, no effusion, no pneumothorax Impression: No acute disease Electronically Signed by: Jes Lorenz DO Last Vital Signs Date Time Temp Pulse Resp B/P (MAP) Pulse Ox O2 Delivery O2 Flow Rate FiO2 06/16/19 10:06 100.0 90 15 127/58 100 Room Air Status: improved Disposition: HOME, SELF-CARE Condition: Improved Scripts Ondansetron* (ZOFRAN*) 4 Mg Tablet 4 MG ORAL Q8HR PRN for Nausea & Vomiting, #12 TAB Prov: Jes Lorenz DO 06/16/19 Additional Instructions: Patient is provided with the discharge instructions notified to follow up with primary doctor in the next 2-3 days otherwise return to the er with any worsening symptoms. Please note that this report is being documented using DRAGON technology. This can lead to erroneous entry secondary to incorrect interpretation by the dictating instrument. Jes Lorenz DO Jun 16, 2019 10:11
[2019-06-16] MEDS ORDERED: Morphine Sulfate 4mg/ml Inj (IV USE ONLY) IVP ONE (10:15)
--- NOTE | 2019-06-16 10:15 | NUR ---
ED Nurse Note: bench lay out technician at the bed side for CXR. Blood specimens sent to lab.
[2019-06-16 10:34] LABS: BASOPHILS % (AUTO) 1.7 % (0.0-2.0); EOSINOPHILS % (AUTO) 4.1 % (0.0-3.0); HEMATOCRIT 42.2 % (37.0-47.0); HEMOGLOBIN 13.8 G/DL (12.0-16.0); LYMPHOCYTES % (AUTO) 44.1 % (20.0-45.0); MEAN CORPUSCULAR VOLUME 86 FL (80-99); MONOCYTES % (AUTO) 10.3 % (1.0-10.0); NEUTROPHILS % (AUTO) 39.8 % (45.0-75.0); PLATELET COUNT 296 K/UL (150-450); RED CELL DISTRIBUTION WIDTH 12.3 % (11.6-14.8); WHITE BLOOD COUNT 7.4 K/UL (4.8-10.8)
[2019-06-16 10:42] LABS: ANION GAP 7 mmol/L (5-15); BLOOD UREA NITROGEN 13 mg/dL (7-18); CALCIUM 8.9 MG/DL (8.5-10.1); CARBON DIOXIDE 29 MMOL/L (21-32); CHLORIDE 100 MMOL/L (98-107); CREATININE 0.9 MG/DL (0.55-1.30); POTASSIUM 3.6 MMOL/L (3.5-5.1); SODIUM 136 MMOL/L (136-145)
--- NOTE | 2019-06-16 10:49 | Diagnostic Imaging Report ---
EXAM: XR Chest, 1 View CLINICAL HISTORY: CP TECHNIQUE: Frontal view of the chest. COMPARISON: Chest radiograph on 03 13 2019 FINDINGS: Hardware: None. Lungs pleura: Stable elevation of the right hemidiaphragm. No focal consolidation. No pleural effusion or pneumothorax. Heart mediastinum: Normal. No cardiomegaly. Soft tissues: Unremarkable. Bones: No acute fracture. Upper abdomen: Normal. IMPRESSION: No acute disease identified.
--- NOTE | 2019-06-16 10:54 | NUR ---
ED Nurse Note: Collected urine then sent.
[2019-06-16 10:55] LABS: ALANINE AMINOTRANSFERASE 30 U/L (12-78); ALBUMIN 3.3 G/DL (3.4-5.0); ALBUMIN/GLOBULIN RATIO 0.6 (1.0-2.7); ALKALINE PHOSPHATASE 68 U/L (46-116); ASPARTATE AMINO TRANSFERASE 16 U/L (15-37); BILIRUBIN,TOTAL 0.3 MG/DL (0.2-1.0); CKMB 1.7 NG/ML (0.0-3.6); CREATINE KINASE 241 U/L (26-308)
[2019-06-16 11:02] LABS: APPEARANCE,URINE CLEAR; BILIRUBIN, URINE NEGATIVE (NEGATIVE); COLOR,URINE PALE YELLOW; GLUCOSE, URINE (UA) NEGATIVE (NEGATIVE); KETONES,URINE NEGATIVE (NEGATIVE); LEUKOCYTE ESTERASE ,URINE NEGATIVE (NEGATIVE); NITRITE,URINE NEGATIVE (NEGATIVE); PH,URINE 7 (4.5-8.0); PROTEIN,URINE NEGATIVE (NEGATIVE); UROBILINOGEN,URINE NORMAL MG/DL (0.0-1.0)
[2019-06-16] MEDS ORDERED: ZOFRAN4 M3 ORAL (12:12)
[2019-06-16 12:24] VITALS: BP 117/64
--- NOTE | 2019-06-16 12:24 | NUR ---
ER DISCHARGE NOTE: Patient is cleared to be discharged per ERMD with family member, pt is aox4, on room air, with stable vital signs. pt was given dc and prescription instructions, pt was able to verbalize understanding, pt id band and iv site removed without complications. pt is able to ambulate with steady gait. pt took all belongings.
--- NOTE | 2019-06-19 14:24 | Cardiology Report ---
APPROVED REPORT EKG Measurement Heart [id number] Normal sinus rhythm Possible Anterior infarct, age undetermined Abnormal ECG
== END 2019-06-16 12:24 | disposition home or self-care (01) ==
LOC: EMR 10:00
DX: R11.0 Nausea (principal); M79.10 Myalgia, unspecified site; R07.9 Chest pain, unspecified; J45.909 Unspecified asthma, uncomplicated; E11.9 Type 2 diabetes mellitus without complications; Z88.8 Allergy status to other drugs, medicaments and biological substances; Z88.0 Allergy status to penicillin; Z88.6 Allergy status to analgesic agent
CPT/HCPCS: 36415; 71045; 80053; 80307; 81003; 81025; 82550; 82553; 83690; 84484; 85025; 93005; 96374; 96375; 99284; J2270; J2405; J7040

== ENCOUNTER 2020-06-29 10:31 | Emergency (ER) | payer MEDICARE, MEDICAID ==
[~2020-06-29] VITALS: Ht 165.1 cm; Wt 122.5 kg
[~2020-06-29 10:31] MED LIST changes: +ZOFRAN4 M3 ORAL
--- NOTE | 2020-06-29 10:50 | NUR ---
ED Nurse Note: Patient from home and walked in due to mid sternal CP and non radiating x2 days. Also c/o lower back pain. Pt reports more pain upon palpation of sternal area. AAO x4, follows commands with non labored breathing.
--- NOTE | 2020-06-29 10:55 | NUR ---
ED Nurse Note: Dr Zuniga at the bed side.
[2020-06-29] MEDS ORDERED: LOVASTATIN40 MG ORAL (10:56)
[2020-06-29] MEDS ORDERED: AVAPRO300 MG ORAL (10:56)
[2020-06-29] MEDS ORDERED: GLIPIZIDE5 MG ORAL (10:56)
[2020-06-29 10:58] VITALS: BP 111/74
[2020-06-29] MEDS ORDERED: Ketorolac 30mg Inj IV ONE (11:00)
--- NOTE | 2020-06-29 11:07 | NUR ---
ED Nurse Note: Collected blood specimen then sent. Ag from Radiology at the bed side for CXR.
[2020-06-29 11:21] LABS: BASOPHILS % (AUTO) 3.1 % (0.0-2.0); EOSINOPHILS % (AUTO) 3.4 % (0.0-3.0); HEMATOCRIT 39.4 % (37.0-47.0); HEMOGLOBIN 13.5 G/DL (12.0-16.0); LYMPHOCYTES % (AUTO) 44.2 % (20.0-45.0); MEAN CORPUSCULAR VOLUME 82 FL (80-99); MONOCYTES % (AUTO) 4.6 % (1.0-10.0); NEUTROPHILS % (AUTO) 44.8 % (45.0-75.0); PLATELET COUNT 284 K/UL (150-450); RED BLOOD COUNT 4.82 M/UL (4.20-5.40); RED CELL DISTRIBUTION WIDTH 12.4 % (11.6-14.8); WHITE BLOOD COUNT 8.3 K/UL (4.8-10.8)
[2020-06-29 11:26] LABS: ANION GAP 9 mmol/L (5-15); BLOOD UREA NITROGEN 15 mg/dL (7-18); CALCIUM 8.9 MG/DL (8.5-10.1); CARBON DIOXIDE 28 MMOL/L (21-32); CHLORIDE 98 MMOL/L (98-107); CREATININE 1.1 MG/DL (0.55-1.30); POTASSIUM 3.6 MMOL/L (3.5-5.1); SODIUM 135 MMOL/L (136-145)
[2020-06-29 11:36] LABS: ALANINE AMINOTRANSFERASE 29 U/L (12-78); ALBUMIN 3.4 G/DL (3.4-5.0); ALBUMIN/GLOBULIN RATIO 0.9 (1.0-2.7); ALKALINE PHOSPHATASE 64 U/L (46-116); ASPARTATE AMINO TRANSFERASE 12 U/L (15-37); BILIRUBIN,TOTAL 0.4 MG/DL (0.2-1.0)
--- NOTE | 2020-06-29 11:42 | Emergency Room Report ---
History of Present Illness General Chief Complaint: Chest Pain Source: Patient, Medical Record Present Illness HPI 50-year-old female presents to ED for evaluation. Complaining of chest pain for the last 2 days. Sternal, dull, 8 out of 10, nonradiating. Also noting pain in the lower back. Denies shortness of breath. Denies fevers or chills. Denies cough. No other aggravating relieving factors. Denies any other associated symptoms Allergies: Coded Allergies: METFORMIN (Verified Allergy, Unknown, Rash, 03/13/19) PENICILLINS (Unverified Allergy, Unknown, 12/07/14) TRAMADOL (Verified Allergy, Unknown, Rash, 03/13/19) COVID-19 Screening Contact w/high risk pt: No Experienced COVID-19 symptoms?: Yes COVID-19 Testing performed ACADEMIC ADVISEMENT DIRECTOR: No Patient History Past Medical History: DM, HTN Past Surgical History: none Pertinent Family History: none Social History: Denies: smoking, alcohol use, drug use Last Menstrual Period: menopause Now: No Immunizations: UTD Reviewed Nursing Documentation: PMH: Agreed; PSxH: Agreed Nursing Documentation-PMH Past Medical History: No History, Except For Hx Hypertension: Yes Hx Asthma: Yes Hx Diabetes: Yes - Type 2 Review of Systems All Other Systems: negative except mentioned in HPI Physical Exam Vital Signs Date Time Temp Pulse Resp B/P (MAP) Pulse Ox O2 Delivery O2 Flow Rate FiO2 06/29/20 10:42 98.8 101 16 144/66 (92) 92 Room Air Sp02 EP Interpretation: reviewed, normal General Appearance: no apparent distress, alert, GCS 15, non-toxic, obese Head: normocephalic, atraumatic Eyes: bilateral eye normal inspection, bilateral eye PERRL ENT: hearing grossly normal, normal pharynx, no angioedema, normal voice Neck: full range of motion, supple/symm/no masses Respiratory: lungs clear, normal breath sounds, speaking full sentences, other - Producible midsternal chest pain Cardiovascular #1: regular rate, rhythm, no edema Cardiovascular #2: 2+ carotid (R), 2+ carotid (L), 2+ radial (R), 2+ radial (L), 2+ dorsalis pedis (R), 2+ dorsalis pedis (L) Gastrointestinal: normal bowel sounds, non tender, soft, non-distended, no guarding, no rebound Rectal: deferred Genitourinary: normal inspection, no CVA tenderness Musculoskeletal: back normal, normal range of motion, gait/station normal, tender - Paraspinal lumbar tenderness Neurologic: alert, motor strength/tone normal, oriented x3, sensory intact, responsive, speech normal Psychiatric: judgement/insight normal, memory normal, mood/affect normal, no suicidal/homicidal ideation Reflexes: 3+ bicep (R), 3+ bicep (L), 3+ tricep (R), 3+ tricep (L), 3+ knee (R), 3+ knee (L) Skin: no rash Lymphatic: no adenopathy Medical Decision Making Diagnostic Impression: Primary Impression: Chest wall pain Additional Impression: Back pain Qualified Codes: M54.5 - Low back pain ER Course Hospital Course 50-year-old female presents with chest pain, back pain Differential diagnoses include: Rib fracture, DC/unstable angina, contusion, muscle strain Clinical course Patient placed on stretcher. After initial history and physical I ordered labs, EKG, chest x-ray, Toradol, Lidoderm. labs reviewed- glucose 201 , troponins negative, no leukocytosis, hemoglobin/hematocrit stable EKGnormal sinus rhythm no acute ischemic changes interpreted by me Chest x-ray-no cardiomegaly, no rib fracture, no pneumothorax, no acute process I discussed findings with patient. Exam appeared more reproducible and muscular. Chest pain for 2 days with negative troponin. Vitals stable. Normal EKG. Safe for discharge for close outpatient follow-up. States she has a PMD I. I feel this is a highly complex case requiring extensive working including EKG/Rhythm strip, Xray/CT/US, Blood/urine lab work, repeat exams while in ED, and administration of strong opiates/narcotics for pain control, admission to hospital or close patient follow up. Diagnosis - chest wall pain, back pain Stable and discharged to home. Instructed to followup with PMD. Return to ED if symptoms recur or worsen Laboratory Tests Test 06/29/20 10:50 White Blood Count 8.3 K/UL (4.8-10.8) Red Blood Count 4.82 M/UL (4.20-5.40) Hemoglobin 13.5 G/DL (12.0-16.0) Hematocrit 39.4 % (37.0-47.0) Mean Corpuscular Volume 82 FL (80-99) Mean Corpuscular Hemoglobin 27.9 PG (27.0-31.0) Mean Corpuscular Hemoglobin Concent 34.2 G/DL (32.0-36.0) Red Cell Distribution Width 12.4 % (11.6-14.8) Platelet Count 284 K/UL (150-450) Mean Platelet Volume 6.9 FL (6.5-10.1) Neutrophils (%) (Auto) 44.8 % (45.0-75.0) L Lymphocytes (%) (Auto) 44.2 % (20.0-45.0) Monocytes (%) (Auto) 4.6 % (1.0-10.0) Eosinophils (%) (Auto) 3.4 % (0.0-3.0) H Basophils (%) (Auto) 3.1 % (0.0-2.0) H Sodium Level 135 MMOL/L (136-145) L Potassium Level 3.6 MMOL/L (3.5-5.1) Chloride Level 98 MMOL/L (98-107) Carbon Dioxide Level 28 MMOL/L (21-32) Anion Gap 9 mmol/L (5-15) Blood Urea Nitrogen 15 mg/dL (7-18) Creatinine 1.1 MG/DL (0.55-1.30) Estimat Glomerular Filtration Rate > 60 mL/min (>60) Glucose Level 201 MG/DL (74-106) H Calcium Level 8.9 MG/DL (8.5-10.1) Total Bilirubin 0.4 MG/DL (0.2-1.0) Aspartate Amino Transf (AST/SGOT) 12 U/L (15-37) L Alanine Aminotransferase (ALT/SGPT) 29 U/L (12-78) Alkaline Phosphatase 64 U/L (46-116) Troponin I 0.000 ng/mL (0.000-0.056) Pro-B-Type Natriuretic Peptide 6 pg/mL (0-125) Total Protein 7.4 G/DL (6.4-8.2) Albumin 3.4 G/DL (3.4-5.0) Globulin 4.0 g/dL Albumin/Globulin Ratio 0.9 (1.0-2.7) L EKG Diagnostic Results Troponin ordered: Yes Rate: normal Rhythm: NSR ST Segments: no acute changes ASA given to the pt in ED: No Rhythm Strip Diag. Results EP Interpretation: yes Rhythm: NSR, no PVC's, no ectopy Chest X-Ray Diagnostic Results Chest X-Ray Diagnostic Results : Chest X-Ray Ordered: Yes # of Views/Limited/Complete: 1 View Indication: Chest Pain EP Interpretation: Yes Interpretation: no consolidation, no effusion, no pneumothorax, no acute cardiopulmonary disease Impression: No acute disease Electronically Signed by: Electronically signed by Chepe Zuniga MD Last Vital Signs Date Time Temp Pulse Resp B/P (MAP) Pulse Ox O2 Delivery O2 Flow Rate FiO2 06/29/20 10:58 98.8 96 16 111/74 100 Room Air Status: improved Disposition: HOME, SELF-CARE Condition: Stable Scripts Lidocaine Patch* (Lidoderm Patch*) 1 Each Adh..patch 1 PATCH TOPIC DAILY, #7 PATCH 0 Refills Patch(es) may remain in place for up to 12 hours in any 24-hour period. Prov: Chepe Zuniga MD 06/29/20 Methocarbamol* (ROBAXIN-750*) 750 Mg Tablet 750 MG PO TID, #21 TAB 0 Refills Prov: Chepe Zuniga MD 06/29/20 Ibuprofen* (MOTRIN*) 600 Mg Tablet 600 MG ORAL Q8H PRN for FOR PAIN, #30 TAB 0 Refills Prov: Chepe Zuniga MD 06/29/20 Referrals: NON PHYSICIAN (PCP) Chepe Zuniga MD Jun 29, 2020 11:42
--- NOTE | 2020-06-29 11:55 | NUR ---
ED Nurse Note: Dr Zuniga at the bed side.
[2020-06-29 11:59] VITALS: BP 113/58
[2020-06-29] MEDS ORDERED: IBUPROFEN600 M1 ORAL (12:06)
[2020-06-29] MEDS ORDERED: ROBAXIN-750750 MG PO (12:06)
[2020-06-29] MEDS ORDERED: LIDODERM700 M1 TOPIC (12:06)
--- NOTE | 2020-06-29 12:10 | Diagnostic Imaging Report ---
EXAM: XR Chest, 1 View CLINICAL HISTORY: CP TECHNIQUE: Frontal view of the chest. COMPARISON: Chest radiograph on 06/16/2019 FINDINGS: Hardware: None. Lungs/pleura: Hazy opacity in the left lung. No focal consolidation. No pleural effusion or pneumothorax. Heart/mediastinum: Normal. No cardiomegaly. Soft tissues: Unremarkable. Bones: No acute fracture. Upper abdomen: Normal. IMPRESSION: Hazy opacity in the left lung may be artifactual. Asymmetric pulmonary edema or infectious/inflammatory process is not excluded.
[2020-06-29 12:13] VITALS: BP 122/60
--- NOTE | 2020-06-29 12:13 | NUR ---
ER DISCHARGE NOTE: Patient is cleared to be discharged per ERMD, pt is aox4, on room air, with stable vital signs. pt was given dc and prescription instructions, pt was able to verbalize understanding, pt id band and iv site removed without complications. pt is able to ambulate with steady gait. pt took all belongings. Pt was assisted via wheelchair to go to their car outside.
== END 2020-06-29 12:13 | disposition home or self-care (01) ==
LOC: EMR 11:09
DX: R07.9 Chest pain, unspecified (principal); M54.5 Low back pain; E66.9 Obesity, unspecified; I10 Essential (primary) hypertension; E11.9 Type 2 diabetes mellitus without complications; Z88.0 Allergy status to penicillin; Z88.8 Allergy status to other drugs, medicaments and biological substances; Z88.6 Allergy status to analgesic agent
CPT/HCPCS: 36415; 71045; 80053; 83880; 84484; 85025; 93005; 96374; 99284; J1885

== ENCOUNTER 2020-08-27 12:00 | Emergency (ER) | payer MEDICARE, MEDICAID ==
[~2020-08-27] VITALS: Ht 160 cm; Wt 113.4 kg
[~2020-08-27 12:00] MED LIST changes: +AVAPRO300 MG ORAL; +GLIPIZIDE5 MG ORAL; +IBUPROFEN600 M1 ORAL; +LIDODERM700 M1 TOPIC; +LOVASTATIN40 MG ORAL; +ROBAXIN-750750 MG PO
--- NOTE | 2020-08-27 12:11 | NUR ---
ED Nurse Note: Pt walked in to ED from home c/o right foot pain and swelling x2 days fter hitting her foot to a chair. Per pt, she has been applying ice to the area but no relief. Ambulatory. AAOx4, no SOB. ERPA at bedside.
--- NOTE | 2020-08-27 12:23 | NUR ---
ED Nurse Note: Xray at bedside.
[2020-08-27] MEDS ORDERED: Methocarbamol 750mg tab ORAL ONE (12:30)
--- NOTE | 2020-08-27 12:44 | Emergency Room Report ---
History of Present Illness General Chief Complaint: Lower Extremity Injury Source: Patient Present Illness HPI 50-year-old female with history of hypertension prediabetes currently taking medication and history of morbid obesity here complaining of 1 week of right foot pain. Patient reports that she was sitting in a week ago and tried to get up as she twisted her foot. Denies any direct fall or injury. Has been taking [id number] Advil with minimal relief. Denies tingling and numbness. Denies any calf pain. Denies chest pain, shortness of breath, headache or dizziness. Denies taking any blood thinners. Allergies: Coded Allergies: METFORMIN (Verified Allergy, Unknown, Rash, 03/13/19) PENICILLINS (Unverified Allergy, Unknown, 12/07/14) TRAMADOL (Verified Allergy, Unknown, Rash, 03/13/19) COVID-19 Screening Contact w/high risk pt: No Experienced COVID-19 symptoms?: No COVID-[address] BAILIFF: No Patient History Past Medical History: see triage record Past Surgical History: none Pertinent Family History: none Last Menstrual Period: 2016 Now: No Immunizations: UTD Reviewed Nursing Documentation: PMH: Agreed; PSxH: Agreed Nursing Documentation-PMH Past Medical History: No History, Except For Hx Hypertension: Yes Hx Asthma: Yes Hx Diabetes: Yes - Type 2 Review of Systems All Other Systems: negative except mentioned in HPI Physical Exam Vital Signs Date Time Temp Pulse Resp B/P (MAP) Pulse Ox O2 Delivery O2 Flow Rate FiO2 08/27/20 12:07 97.9 110 18 129/71 (90) 94 Room Air Sp02 EP Interpretation: reviewed, normal General Appearance: no apparent distress, alert, GCS 15, non-toxic Head: normocephalic, atraumatic Eyes: bilateral eye normal inspection, bilateral eye PERRL Neck: full range of motion, supple/symm/no masses Respiratory: chest non-tender, no rhonchi Cardiovascular #1: regular rate, rhythm, no edema Cardiovascular #2: 2+ dorsalis pedis (R), 2+ dorsalis pedis (L) Gastrointestinal: normal bowel sounds, non tender, soft, non-distended, no guarding, no rebound Rectal: deferred Musculoskeletal: back normal, no calf tenderness, gait/station normal, no lower extremity edema, non-tender Neurologic: alert, motor strength/tone normal, oriented x3, sensory intact, responsive, speech normal Psychiatric: judgement/insight normal, memory normal, mood/affect normal, no suicidal/homicidal ideation Skin: no rash Lymphatic: no adenopathy Medical Decision Making PA Attestation ALL Diagnosis and treatment plan reviewed and discussed with my supervising physician Dr. Garcia Diagnostic Impression: Primary Impression: Foot sprain Additional Impression: Arthritis ER Course 50-year-old female with history of hypertension prediabetes currently taking medication and history of morbid obesity here complaining of 1 week of right foot pain. Patient reports that she was sitting in a week ago and tried to get up as she twisted her foot. Denies any direct fall or injury. Has been taking [id number] Advil with minimal relief. Denies tingling and numbness. Denies any calf pain. Denies chest pain, shortness of breath, headache or dizziness. Denies taking any blood thinners. Ddx considered but are not limited to: foot fracture, foot sprain, foot con tusion, foot strain, Vital signs: are WNL, pt. is afebrile H&PE are most consistent with: foot sprain, arthritis ORDERS: foot Xray , Robaxin, Voltaren gel, Motrin ED INTERVENTIONS: Robaxin DISCHARGE: At this time pt. is stable for d/c to home. Will provide printed patient care instructions, and any necessary prescriptions. Care plan and follow up instructions have been discussed with the patient prior to discharge. Take medication as directed, follow-up with your primary care provider, stable while, if worsening symptoms return to the emergency room Other X-Ray Diagnostic Results Other X-Ray Diagnostic Results : X-Ray ordered: Foot x-ray # of Views/Limited Vs Complete: 3 View Indication: Pain EP Interpretation: Yes PA Xray: Interpretation reviewed, by supervising MD, and agrees with findings. Interpretation: no dislocation, no soft tissue swelling, no fractures Impression: No acute disease Electronically Signed by: Vitaily Gibson PA-C Last Vital Signs Date Time Temp Pulse Resp B/P (MAP) Pulse Ox O2 Delivery O2 Flow Rate FiO2 08/27/20 12:07 97.9 110 18 129/71 (90) 94 Room Air Disposition: HOME, SELF-CARE Condition: Stable Scripts Diclofenac Sodium (VOLTAREN) 100 Gm Gel..gram. 2 GM TP TID, #100 GM Prov: Vitaliy Meneses 08/27/20 Ibuprofen* (MOTRIN*) 600 Mg Tablet 600 MG ORAL Q6H PRN for For Pain, #30 TAB 0 Refills Prov: Vitaliy Meneses 08/27/20 Methocarbamol* (ROBAXIN-500*) 500 Mg Tablet 500 MG ORAL TID PRN for For Pain, #15 TAB 0 Refills Prov: Vitaliy Meneses 08/27/20 Patient Instructions: Arthritis, [id number], Foot Sprain Additional Instructions: Take medication as directed, follow-up with your primary care provider, if worsening symptoms return to the emergency room Vitaliy Meneses Aug 27, 2020 12:44
[2020-08-27] MEDS ORDERED: IBUPROFEN600 M1 ORAL (12:45)
[2020-08-27] MEDS ORDERED: ROBAXIN-500MG ORAL (12:45)
[2020-08-27] MEDS ORDERED: VOLTAREN100 G1 TP (12:45)
[2020-08-27 12:49] VITALS: BP 128/74
--- NOTE | 2020-08-27 12:49 | NUR ---
ED Nurse Note: Pt cleared by ERPA for discharge. DC instructions/prescription was given and explained to pt and verbalized understanding of teachings. All medical deviecs such as ID band removed. Pt is AAO x4, ambulatory and left with all personal belongings.
--- NOTE | 2020-08-27 14:36 | Diagnostic Imaging Report ---
Indication: Trauma, pain Technique: 3 views right foot Comparison: none Findings: No acute fracture. No dislocation. There is mild hallux valgus. The joint spaces are preserved Impression: Negative
== END 2020-08-27 12:49 | disposition home or self-care (01) ==
LOC: EMR 12:30
DX: S93.601A Unspecified sprain of right foot, initial encounter (principal); M19.90 Unspecified osteoarthritis, unspecified site; I10 Essential (primary) hypertension; J45.909 Unspecified asthma, uncomplicated; E11.9 Type 2 diabetes mellitus without complications; X50.1XXA Overexertion from prolonged static or awkward postures, initial encounter; Y93.89 Activity, other specified; Y92.9 Unspecified place or not applicable; Z79.84 Long term (current) use of oral hypoglycemic drugs; Z88.0 Allergy status to penicillin; Z88.5 Allergy status to narcotic agent; Z88.8 Allergy status to other drugs, medicaments and biological substances
CPT/HCPCS: 99283

== ENCOUNTER 2020-09-03 06:55 | Emergency (ER) | payer MEDICARE, MEDICAID ==
[~2020-09-03] VITALS: Ht 165.1 cm; Wt 113.4 kg
[~2020-09-03 06:55] MED LIST changes: +ROBAXIN-500MG ORAL; +VOLTAREN100 G1 TP
[2020-09-03 07:05] VITALS: BP 134/85
--- NOTE | 2020-09-03 07:05 | NUR ---
ED Nurse Note: Pt walked in to ED c/o generalized body pain, fever and SOB. Pt reports having recurrent fever for the past couple of days. Temp at triage 99.5F. Has hx of asthma. AAOx4, on room air. ERMD at bedside.
[2020-09-03] MEDS ORDERED: Azithromycin 500 MG in NS 275 ML IVPB ONE (07:15)
[2020-09-03] MEDS ORDERED: cefTRIAXone 1 GM in NS 55 ML IVPB ONE (07:15)
[2020-09-03] MEDS ORDERED: dexAMETHasone 10mg/ml Inj IV ONE (07:15)
[2020-09-03] MEDS ORDERED: Omnipaque 350 100ml vial INJ PRN (07:30)
--- NOTE | 2020-09-03 07:40 | NUR ---
ED Nurse Note: IV line established. Blood and covid swab sent to lab.
--- NOTE | 2020-09-03 07:47 | Emergency Room Report ---
History of Present Illness General Chief Complaint: Flu Like Symptoms Source: Patient Present Illness HPI 50-year-old morbidly obese -[place] female with past medical history of diabetes, hypertension, asthma presents to the emergency department with cough, shortness of breath, fever x3 days Patient lives at home with her daughter who is a healthcare worker. She denies recent Covid testing. Also endorses nausea, diarrhea, and fatigue. Denies chest pain, hemoptysis, hematuria, dysuria, abdominal pain, pelvic pain, back pain, headache, neck pain or any other symptoms. Also has intermittent chest wall pain, sometimes when she coughs, sometimes not. Denies history of blood clot, recent trauma/surgery/immobilization, or leg swelling The patient's symptoms were gradual onset, severity was moderate, duration since 3 days. Quality: Generalized weakness Past medical history: Diabetes, hypertension, asthma, obesity Past surgical history: Hip surgery Smoking: Denies Alcohol use: Occasional Drug use: Denies Review of systems: CONST: Positive fevers or chills, No night sweats PULMONARY: Positive cough, positive shortness of breath CARDIAC: No chest pain, No palpitations GI: No vomiting, positive diarrhea , No melena_or_BRBPR : No dysuria, No hematuria, No discharge NEURO: No new_focal_weakness_or_numbness, No confusion, No vision changes 14 point Review of Systems is otherwise negative except per HPI Physical Exam: GENERAL: Awake_alert_ nontoxic, no acute distress Spo2 96% on RA -normal . Morbidly obese tachycardic EYES: Extraocular muscles are intact. Conjunctivae clear. Lids without swelling ENT: External nose and ear normal_in_appearance. Oropharynx clear. Head_atraumatic, Moist_oral_mucosa NECK: No JVD. No meningismus. No thyromegaly. Supple. Trachea midline RESP: Normal respiratory effort. Symmetric rise. No stridor. Clear_to_auscultation_No_rales_No_wheezes CARDIAC: Tachy and regular rhytm. No_significant pedal edema. ABDOMEN: Soft. Nondistended. Nontender_No_rebound_or_guarding. MSK: Normal muscle tone, without rigidity. Extremities without asymmetric deformity or swelling. SKIN: Warm and dry. No visible cyanosis or pallor. No petechiae NEUROLOGIC: Alert, oriented x3. Motor_and_sensation_grossly_intact. No truncal ataxia. Gait_normal Psych: Normal mood and affect, normal judgment and insight - COORDINATION OF CARE Case was discussed with: Patient Any labs and imaging that were ordered were interpreted as part of the medical decision making: Medical Decision Making/Plan: DDx: includes COVID-19 / coronavirus infection, URI, bronchitis, viral syndrome, postnasal drip, versus less likely pneumonia, among others. The patient is nontoxic and well-appearing and has no significant shortness of breath or fever . The patient exhibits no evidence of respiratory distress. No evidence of ENT emergency, airway patent, tolerating oral liquids and solids. No stridor or difficulty breathing. Tonsils within normal limits, no evidence of swelling, exudate or strep pharyngitis. Labs show troponin negative x1. No significant leukocytosis, leukopenia, bandemia, or acidosis. Covid swab is positive. Chest x-ray revealed nonspecific groundglass opacities. CTA neg for PE. EKG shows is without any obvious signs of ischemia. No significant right heart strain Patient received Decadron, Rocephin, azithromycin, and a liter bolus with decrease tachycardia. Pulse ox is approaching 100%. Zofran given for nausea. Acute coronary syndrome is unlikely and the patient is low risk, pain is atypical, nonexertional, and troponin is negative with over 6 hrs of symptoms. The pain is not classic for pericarditis or myocarditis, and the patient has no significant risk factors for a pericardial effusion and has stable vitals signs, unlikely to have tamponade. The patient has no significant risk factors for aortic dissection, no history of connective tissue disorder, and the patients pain is not severe, radiating to the back, or tearing in nature. They have normal bilateral radial and pedal pulses. Patient observed for several hours in the ED, ECG with no emergent findings, patient discharged with no dangerous vital signs, patient instructed to follow up with PMD in the next 1-2 days to be referred for a treadmill stress test within the next 48-72 hours. HEART score < 4, which indicates low risk, so the patient can be safely discharged with the understanding that they need to make an appointment with a primary care doctor to be referred for a stress test within the next 48-72 hours, or if they cannot arrange that they are to return to the ED, or sooner than that if they have any changing, persistent, or worsening symptoms. The patient was nontoxic with benign vital signs. They did not meet admission criteria and was stable for outpatient therapy, under the current guideline. The patient was instructed to be home quarantined, and appropriate precautions were given. The patient was educated and instructed to notify a healthcare professional if they develop difficulty breathing, chest pain, palpitations, fever or other concerning symptoms. These instructions were given to the patient in both verbal and written forms. The patient was given an opportunity to ask questions. The patient was discharged with written instructions for COVID-19, including strict ED return precautions. Allergies: Coded Allergies: METFORMIN (Verified Allergy, Unknown, Rash, 03/13/19) PENICILLINS (Unverified Allergy, Unknown, 12/07/14) TRAMADOL (Verified Allergy, Unknown, Rash, 03/13/19) COVID-19 Screening Contact w/high risk pt: No Experienced COVID-19 symptoms?: Yes COVID-19 Testing performed PROCESS VALIDATION ENGINEER: No Patient History Last Menstrual Period: n/a Nursing Documentation-[facility] Past Medical History: No History, Except For Hx Hypertension: Yes Hx Asthma: Yes Hx Diabetes: Yes - Type 2 Physical Exam Vital Signs Date Time Temp Pulse Resp B/P (MAP) Pulse Ox O2 Delivery O2 Flow Rate FiO2 09/03/20 07:00 99.5 100 18 134/85 (101) 92 Room Air Sp02 EP Interpretation: reviewed, normal Medical Decision Making Diagnostic Impression: Primary Impression: COVID-19 Additional Impressions: Cough Diarrhea Obesity, morbid, BMI 40.0-49.9 Diabetes HTN (hypertension) Hiatal hernia Cholelithiasis EKG Diagnostic Results Troponin ordered: Yes When was troponin ordered?: Sep 03, 2020 MADELEINE Mckeeibe Jaimie 12-lead EKG (interpreted by me) Time: 28 Indication: Rhythm analysis Tracing visualized and Interpreted by me. Rhythm: Sinus tachycardia Rate: 105 bpm QTc: 436 sinus tachycardia. Morphology: No_significant_ST_elevations_or_depressions, No STEMI Impression: Normal_sinus_rhythm_without_significant_abnormality Rhythm Strip Diag. Results Rhythm Strip Time: 07:45 EP Interpretation: yes Rate: 99 Rhythm: NSR, no PVC's, no ectopy Chest X-Ray Diagnostic Results Chest X-Ray Diagnostic Results : MADELEINE Etienne Chest X-Ray: Views: [ 1 ] view(s) Indication: Cough Findings: Normal heart size. Mediastinum normal. GGO. COVID Impression: COVID The X-ray(s) were independently viewed and interpreted contemporaneously Electronically signed by Karolina mercedes DO CT/MRI/US Diagnostic Results CT/MRI/US Diagnostic Results : Impression CTA Chest w Contrast Findings: Pulmonary arteries are well-opacified. No intraluminal filling defects or other findings to suggest acute pulmonary embolus demonstrated. Normal caliber pulmonary arteries. No evidence of right ventricular dilatation. No evidence of thoracic aortic aneurysm or dissection. Normal caliber of great neck vessels and proximal abdominal visceral vessels. The lungs demonstrate a few scattered areas of peripheral groundglass opacity involving all lobes but with a basilar predominance. No dense consolidation. No effusions, congestion, masses, or nodules. The parenchymal changes represent a new finding from the prior study. Again demonstrated is a small sliding-type hiatal hernia. No pericardial effusion. Normal heart size. Unremarkable thyroid. No axillary or chest wall mass or adenopathy. The included upper abdominal viscera demonstrates slight heterogeneity to the gallbladder luminal contents which could indicate sludge or stones, not clearly evident previously. Impression: No evidence of acute pulmonary embolus or other acute thoracic vascular pathology Scattered peripheral groundglass opacities, suspicious for multifocal pneumonia, likely viral Small hiatal hernia, also previously reported Questionable cholelithiasis Reevaluation Time: 08:38 Last Vital Signs Date Time Temp Pulse Resp B/P (MAP) Pulse Ox O2 Delivery O2 Flow Rate FiO2 09/03/20 07:05 100 18 Room Air 09/03/20 07:05 99.5 134/85 92 Status: improved Disposition: HOME, SELF-CARE Admit Decision Time: 10:00 Condition: Stable Scripts Albuterol Sulfate (PROVENTIL HFA) 6.7 Gm Hfa.aer.ad 6.7 GM IH QID for 5 Days, #1 GM Prov: Karolina Winkler D.O. 09/03/20 Acetaminophen* (TYLENOL EXTRA STRENGTH*) 500 Mg Tablet 500 MG ORAL Q8H PRN for Prn Headache/Temp > 101, #30 TAB 0 Refills Prov: Karolina Winkler.ONasim 09/03/20 Guaifenesin/D-Methorphan Hb/Pe (ROBITUSSIN COUGH-COLD CF LIQ*) 118 Ml Liquid 10 ML ORAL Q8H PRN for FOR COUGH, #118 ML Prov: Karolina Winkler D.O. 09/03/20 Azithromycin* (ZITHROMAX*) 250 Mg Tablet 250 MG ORAL DAILY, #6 TAB 0 Refills Take two tables once daily for 1 day, then one tablet once daily for 4 days. Prov: Karolina Winkler.Ernie. 09/03/20 Ondansetron Odt* (ZOFRAN ODT*) 4 Mg Tab.rapdis 4 MG BC EVERY 8 HOURS, #10 TAB 0 Refills Prov: Karolina Winkler D.O. 09/03/20 Patient Instructions: Cough, Adult, Ocur-iv-Kcaq Additional Instructions: Instructions for patient/mill supervisor: Follow up with your physician in 1-2 days. Follow-up with your doctor sooner if your condition requires a more timely clinical reevaluation. Return to the emergency department immediately if you feel that your condition is worsening or if you have any new or concerning symptoms. Review your discharge instructions and take any prescriptions given as instructed. [facility] PROVIDES FREE OR LOW-COST HEALTH SERVICES TO PEOPLE WHO CAN SHOW PROOF THAT THEY LIVE IN [facility]. TO FIND MORE CLINICS PARTNERED WITH [facility] TO PROVIDE SERVICE, PLEASE CALL . You tested positive for COVID-19 Symptoms of a viral syndrome may include fever, sore throat, headache, body aches and pains, generalized weakness and fatigue, and runny nose. You do not show signs or symptoms suggestive of a serious or life threatening illness. This illness may be caused by a number of different viruses, including Influenza A or B or COVID-19. These viruses are highly contagious and spread rapidly from person to person via coughing and sneezing of the virus or by contaminated surface contact with nasal or other respiratory secretions. These viruses cause a similar combination of signs and symptoms which are typically much more severe than the common cold. Typically they begin with the rapid onset of fever, often high (over 102), body aches, fatigue, headache, and usually upper respiratory tract infections symptoms such as cough, runny nose, and sore throat. The illness typically lasts 7-10 days, with the fever and feelings of weakness and body aches usually lasting 3-5 days. Your own immune system fights off these infections. Only rarely do secondary bacterial infections occur (such as bacterial pneumonia) and can be serious. At this time your symptoms do not appear serious, however, there are limitations to online visits and if you are not improving you may need to be evaluated by a doctor in person and that doctor may need to do additional tests. INSTRUCTIONS: Illnesses such as yours typically resolve on their own with time however you must remember to stay hydrated and drink 2-3 times your normal fluid intake, as fever and your increased metabolism in fighting the infection uses mo re water. Fever control is important to help you feel better and to help prevent dehydration. Acetaminophen is an excellent choice for fever control and other symptoms (as long as you are not allergic to the medication). Rest is also important in helping your body fight this infection. Over the counter cough and decongestant medications are safe (as long as you dont have uncontrolled high blood pressure) and may help the cough and congestion slightly. As these viruses are highly contagious, good hand washing habits, and covering your cough and sneeze help prevent spread. Fever can be a sign of a serious infection and it is imperative that you go directly to an Emergency Department for serious symptoms such as weakness, confusion, significant shortness of breath, abdominal pain, or severe headache. Close follow up with a physician is important if you are not improving over the next few days or you experience worsening of your symptoms. Although it is impossible to know at this point if you have COVID-19 (the Purcell virus), please quarantine yourself and anyone else that is residing with you for the longer of the following time periods: 14 days OR 3 days after the last of your symptoms has resolved CONTACT THE DOCTOR RIGHT AWAY if you develop worsening symptoms such as shortness of breath, chest pain, neck stiffness, confusion or any other new, worsening, or concerning symptoms. For emergencies contact 911 immediately. Karolina Winkler D.O. Sep 03, 2020 07:47
[2020-09-03 07:55] LABS: BASOPHILS % (AUTO) 1.4 % (0.0-2.0); EOSINOPHILS % (AUTO) 0.2 % (0.0-3.0); HEMATOCRIT 36.2 % (37.0-47.0); LYMPHOCYTES % (AUTO) 31.2 % (20.0-45.0); MEAN CORPUSCULAR VOLUME 80 FL (80-99); MONOCYTES % (AUTO) 14.4 % (1.0-10.0); NEUTROPHILS % (AUTO) 52.8 % (45.0-75.0); PLATELET COUNT 177 K/UL (150-450); RED CELL DISTRIBUTION WIDTH 13.6 % (11.6-14.8); WHITE BLOOD COUNT 4.3 K/UL (4.8-10.8)
--- NOTE | 2020-09-03 07:55 | NUR ---
ED Nurse Note: Urine sent to lab.
[2020-09-03 08:03] LABS: ANION GAP 5 mmol/L (5-15); BLOOD UREA NITROGEN 10 mg/dL (7-18); CARBON DIOXIDE 27 MMOL/L (21-32); CHLORIDE 101 MMOL/L (98-107); CREATININE 0.9 MG/DL (0.55-1.30); POTASSIUM 3.7 MMOL/L (3.5-5.1); SODIUM 133 MMOL/L (136-145)
--- NOTE | 2020-09-03 08:10 | NUR ---
ED Nurse Note: Xray at bedside.
[2020-09-03 08:21] LABS: ALANINE AMINOTRANSFERASE 32 U/L (12-78); ALBUMIN 3.1 G/DL (3.4-5.0); ALBUMIN/GLOBULIN RATIO 0.7 (1.0-2.7); ALKALINE PHOSPHATASE 58 U/L (46-116); ASPARTATE AMINO TRANSFERASE 20 U/L (15-37); BILIRUBIN,TOTAL 0.3 MG/DL (0.2-1.0); CREATINE KINASE 210 U/L (26-308); FERRITIN 185 NG/ML (8-388); LACTATE DEHYDROGENASE 169 U/L (81-234)
[2020-09-03] MEDS ORDERED: PROVENTIL HFA6.7 G1 IH (08:39)
[2020-09-03] MEDS ORDERED: ROBITUSSIN COU118 M1 ORAL (08:39)
[2020-09-03] MEDS ORDERED: ONDANSETRON ODT4 MG BC (08:39)
[2020-09-03] MEDS ORDERED: ZITHROMAX250 MG ORAL (08:39)
[2020-09-03] MEDS ORDERED: TYLENOL EXTRA500 MG ORAL (08:39)
--- NOTE | 2020-09-03 08:45 | NUR ---
ED Nurse Note: Pt was taken to CT via [facility] accompanied by a tech.
--- NOTE | 2020-09-03 08:50 | NUR ---
ED Nurse Note: Pt returned from CT, not in any distress.
[2020-09-03 08:51] LABS: APPEARANCE,URINE SLIGHTLY CLOUDY; BILIRUBIN, URINE NEGATIVE (NEGATIVE); GLUCOSE, URINE (UA) 2+ (NEGATIVE); KETONES,URINE 1+ (NEGATIVE); LEUKOCYTE ESTERASE ,URINE 1+ (NEGATIVE); NITRITE,URINE NEGATIVE (NEGATIVE); PH,URINE 5 (4.5-8.0); PROTEIN,URINE 2+ (NEGATIVE); UROBILINOGEN,URINE NORMAL MG/DL (0.0-1.0)
[2020-09-03 08:53] LABS: COLOR,URINE YELLOW
[2020-09-03 09:09] VITALS: BP 113/55
--- NOTE | 2020-09-03 10:04 | Diagnostic Imaging Report ---
ndication: Shortness of breath Technique: IV administration nonionic contrast. Spiral acquisitions obtained from the lung bases to the lung apices. Multiplanar and 3-D reconstructions were generated. Total dose length product 1013 mGycm. CTDIvol(s) 7, 97, 25 mGy. Dose reduction achieved using automated exposure control Comparison: Conventional chest CT 03/14/2019 Findings: Pulmonary arteries are well-opacified. No intraluminal filling defects or other findings to suggest acute pulmonary embolus demonstrated. Normal caliber pulmonary arteries. No evidence of right ventricular dilatation. No evidence of thoracic aortic aneurysm or dissection. Normal caliber of great neck vessels and proximal abdominal visceral vessels. The lungs demonstrate a few scattered areas of peripheral groundglass opacity involving all lobes but with a basilar predominance. No dense consolidation. No effusions, congestion, masses, or nodules. The parenchymal changes represent a new finding from the prior study. Again demonstrated is a small sliding-type hiatal hernia. No pericardial effusion. Normal heart size. Unremarkable thyroid. No axillary or chest wall mass or adenopathy. The included upper abdominal viscera demonstrates slight heterogeneity to the gallbladder luminal contents which could indicate sludge or stones, not clearly evident previously. Impression: No evidence of acute pulmonary embolus or other acute thoracic vascular pathology Scattered peripheral groundglass opacities, suspicious for multifocal pneumonia, likely viral Small hiatal hernia, also previously reported Questionable cholelithiasis The CT scanner at [facility] is accredited by the [employer] and the scans are performed using protocols designed to limit radiation exposure to as low as reasonably achievable to attain images of sufficient resolution adequate for diagnostic evaluation.
[2020-09-03 10:16] VITALS: BP 121/74
--- NOTE | 2020-09-03 10:16 | NUR ---
ED Nurse Note: Pt cleared by ERMD for discharge. DC instructions/prescription was given and explained to pt and verbalized understanding of teachings. All medical deviecs such as ID band and IV line removed. Pt is AAO x4, ambulatory and left with all personal belongings.
--- NOTE | 2020-09-03 12:48 | Diagnostic Imaging Report ---
Indication: Reason For Exam: COUGH Technique: One view of the chest Comparison: 06/16/2019 Findings: Lungs and pleural spaces are clear. Heart size is normal. Impression: No acute process
== END 2020-09-03 10:16 | disposition home or self-care (01) ==
LOC: EMR 07:28
DX: U07.1 COVID-19 (principal); R05 Cough; R19.7 Diarrhea, unspecified; E66.01 Morbid (severe) obesity due to excess calories; Z68.41 Body mass index [BMI] 40.0-44.9, adult; E11.9 Type 2 diabetes mellitus without complications; I10 Essential (primary) hypertension; K44.9 Diaphragmatic hernia without obstruction or gangrene; K80.20 Calculus of gallbladder without cholecystitis without obstruction; J45.909 Unspecified asthma, uncomplicated; Z88.0 Allergy status to penicillin; Z88.5 Allergy status to narcotic agent; Z88.8 Allergy status to other drugs, medicaments and biological substances; Z79.84 Long term (current) use of oral hypoglycemic drugs; Z79.899 Other long term (current) drug therapy
CPT/HCPCS: 36415; 71045; 71275; 80053; 81003; 82550; 82728; 83605; 83615; 83690; 83880; 84484; 84702; 85025; 85379; 85610; 85730; 86140; 93005; 96361; 96365; 96375; 99284; J0456; J2405; J7050; Q9967; U0002

== ENCOUNTER 2020-12-02 09:15 | Inpatient (IN) | payer MEDICARE, MEDICAID ==
[~2020-12-02] VITALS: Ht 162.6 cm; Wt 95.3 kg
[~2020-12-02 09:15] MED LIST changes: +ONDANSETRON ODT4 MG BC; +PROVENTIL HFA6.7 G1 IH; +ROBITUSSIN COU118 M1 ORAL; +TYLENOL EXTRA500 MG ORAL; +ZITHROMAX250 MG ORAL
--- NOTE | 2020-12-02 09:33 | NUR ---
pt arrives to ER with complaints of chest pain with palpitations starting this morning. pt denies history of CAD but states family history. pt describes pain as sharp and pressure that radiates to left shoulder. pt states history of DMII, HTN, ASTHMA,. pt denies any covid symptoms at this time. vitals stable.
[2020-12-02 09:47] VITALS: BP 153/84
--- NOTE | 2020-12-02 09:50 | Emergency Room Report ---
History of Present Illness General Chief Complaint: Chest Pain Source: Patient Present Illness HPI Disclaimer: Please note that this report is being documented using [employer] technology. This can lead to erroneous entry secondary to incorrect interpretation by the dictating instrument. HPI: 50-year-old female history of obesity, hypertension, diabetes type 2 presents for evaluation of chest pain. Patient reports intermittent sharp "pinching" pain in the right breast in the left shoulder intermittently for the past few days. Experienced it again this morning as well as palpitations. Said her pulse felt irregular to her. Pain does not radiate. Denies changes in chest pain with exertion or exercise. No changes in exertional ability. Denies swelling of the extremities. No exacerbating or relieving factors noted. Denies nausea, vomiting, diaphoresis, lightheadedness, syncope. Denies prior history of CAD. There is some family history of CAD. Patient states she smokes sometimes. Denies fever, chills, cough, congestion. She has not taken her antihypertensive or diabetic medications for several days. She states she did drink coffee this morning before the palpitations started. Also eating donuts which she states is why her blood pressures and blood sugar high. 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 COVID-19 Screening: Negative COVID-19 Nursing Documentation-PMH Hx Cardiac Problems: No Hx Hypertension: Yes Hx Pacemaker: No Hx Asthma: Yes Hx COPD: No Hx Diabetes: No Hx Cancer: No Hx Gastrointestinal Problems: No Hx Dialysis: No History Of Psychiatric Problem: No Hx Neurological Problems: No Hx Cerebrovascular Accident: No Hx Seizures: No Review of Systems All Other Systems: negative except mentioned in HPI Physical Exam Vital Signs Date Time Temp Pulse Resp B/P (MAP) Pulse Ox O2 Delivery O2 Flow Rate FiO2 12/02/20 09:28 98.1 93 18 151/61 (91) 100 Room Air General: Awake and alert, no acute distress HEENT: NC/AT. EOMI. Chest Wall: No tenderness, no crepitus, no deformity Cardiovascular: RRR. S1 and S2 normal. No murmur appreciated Resp: Normal work of breathing. No cough, wheezing or crackles appreciated Abdomen: Abdomen is soft, nondistended. Nontender Skin: Intact. No abrasions, laceration or rash over the exposed skin MSK: Normal tone and bulk. Moving all extremities. No obvious deformity. Neuro: Awake and alert. Mentating appropriately. Medical Decision Making Diagnostic Impression: Primary Impression: Chest pain Additional Impressions: Uncontrolled diabetes mellitus Hyperglycemia ER Course 50-year-old female history of hypertension, diabetes, obesity presents for evaluation of chest pain and palpitations. Differential includes is not limited to ACS, arrhythmia, palpitations, symptoms of caffeine, symptoms of hyperglycemia, DKA, dehydration, musculoskeletal pain, pneumonia, pneumothorax among others. She arrives with stable vital signs overall well-appearing. Her EKG on arrival shows sinus rhythm without ischemic changes. There are Q waves in lead III seen on prior EKGs. Fingerstick on arrival 419. Patient treated with fluids and insulin. Troponin negative. Glucose downtrending. Given the patient's risk factors she will be admitted for further evaluation and treatment. Accepted by panel physician, Dr. Anguiano. Heart score: History: 1 EC Age: 1 Risk factors: 2 Initial troponin: 0 Total: 4 Laboratory Tests Test 12/02/20 09:46 12/02/20 09:50 POC Whole Blood Glucose Pending White Blood Count 7.1 K/UL (4.8-10.8) Red Blood Count 5.05 M/UL (4.20-5.40) Hemoglobin 14.1 G/DL (12.0-16.0) Hematocrit 44.6 % (37.0-47.0) Mean Corpuscular Volume 88 FL (80-99) Mean Corpuscular Hemoglobin 27.9 PG (27.0-31.0) Mean Corpuscular Hemoglobin Concent 31.6 G/DL (32.0-36.0) L Red Cell Distribution Width 13.5 % (11.6-14.8) Platelet Count 218 K/UL (150-450) Mean Platelet Volume 8.6 FL (6.5-10.1) Neutrophils (%) (Auto) 46.4 % (45.0-75.0) Lymphocytes (%) (Auto) 41.5 % (20.0-45.0) Monocytes (%) (Auto) 7.9 % (1.0-10.0) Eosinophils (%) (Auto) 3.2 % (0.0-3.0) H Basophils (%) (Auto) 1.0 % (0.0-2.0) Sodium Level 138 MMOL/L (136-145) Potassium Level 3.6 MMOL/L (3.5-5.1) Chloride Level 102 MMOL/L (98-107) Carbon Dioxide Level 27 MMOL/L (21-32) Anion Gap 9 mmol/L (5-15) Blood Urea Nitrogen 11 mg/dL (7-18) Creatinine 1.1 MG/DL (0.55-1.30) Estimated Glomerular Filtration Rate > 60 mL/min (>60) Glucose Level 464 MG/DL (74-106) H Calcium Level 8.9 MG/DL (8.5-10.1) Total Bilirubin 0.3 MG/DL (0.2-1.0) Aspartate Amino Transferase (AST) 14 U/L (15-37) L Alanine Aminotransferase (ALT) 27 U/L (12-78) Alkaline Phosphatase 105 U/L (46-116) Troponin I 0.000 ng/mL (0.000-0.056) Total Protein 7.7 G/DL (6.4-8.2) Albumin 3.4 G/DL (3.4-5.0) Globulin 4.3 g/dL Albumin/Globulin Ratio 0.8 (1.0-2.7) L EKG Diagnostic Results Troponin ordered: Yes When was troponin ordered?: Dec 02, 2020 EKG Time: 08:41 Rate: normal Rhythm: NSR ST Segments: no acute changes Other Impression Sinus rhythm, normal axis, normal intervals, isolated Q wave III unchanged from prior EKGs ASA given to the pt in ED: Yes Rhythm Strip Diag. Results Rhythm Strip Time: 08:41 EP Interpretation: yes Rate: 90s Rhythm: NSR, no PVC's, no ectopy Chest X-Ray Diagnostic Results Chest X-Ray Diagnostic Results : Chest X-Ray Ordered: Yes # of Views/Limited/Complete: 1 View Indication: Chest Pain EP Interpretation: Yes Interpretation: no consolidation, no effusion, no pneumothorax, no acute car diopulmonary disease Impression: No acute disease Electronically Signed by: Electronically signed by Dr. Andre Holguin MD Last Vital Signs Date Time Temp Pulse Resp B/P (MAP) Pulse Ox O2 Delivery O2 Flow Rate FiO2 12/02/20 09:28 98.1 93 18 151/61 (91) 100 Room Air Disposition: PLACE IN OBSERVATION Condition: Stable Andre Holguin MD Dec 02, 2020 09:50
[2020-12-02 09:59] LABS: EOSINOPHILS % (AUTO) 3.2 % (0.0-3.0); HEMATOCRIT 44.6 % (37.0-47.0); HEMOGLOBIN 14.1 G/DL (12.0-16.0); LYMPHOCYTES % (AUTO) 41.5 % (20.0-45.0); MEAN CORPUSCULAR VOLUME 88 FL (80-99); MONOCYTES % (AUTO) 7.9 % (1.0-10.0); NEUTROPHILS % (AUTO) 46.4 % (45.0-75.0); PLATELET COUNT 218 K/UL (150-450); RED BLOOD COUNT 5.05 M/UL (4.20-5.40); RED CELL DISTRIBUTION WIDTH 13.5 % (11.6-14.8); WHITE BLOOD COUNT 7.1 K/UL (4.8-10.8)
[2020-12-02] MEDS ORDERED: Insulin Human Regular 100units/ml 3ml IV ONE ×2 (10:00→13:00)
[2020-12-02 10:09] LABS: ANION GAP 9 mmol/L (5-15); BLOOD UREA NITROGEN 11 mg/dL (7-18); CALCIUM 8.9 MG/DL (8.5-10.1); CARBON DIOXIDE 27 MMOL/L (21-32); CHLORIDE 102 MMOL/L (98-107); CREATININE 1.1 MG/DL (0.55-1.30); POTASSIUM 3.6 MMOL/L (3.5-5.1); SODIUM 138 MMOL/L (136-145)
[2020-12-02 10:13] LABS: ALANINE AMINOTRANSFERASE 27 U/L (12-78); ALBUMIN 3.4 G/DL (3.4-5.0); ALBUMIN/GLOBULIN RATIO 0.8 (1.0-2.7); ALKALINE PHOSPHATASE 105 U/L (46-116); ASPARTATE AMINO TRANSFERASE 14 U/L (15-37); BILIRUBIN,TOTAL 0.3 MG/DL (0.2-1.0)
[2020-12-02 11:06] VITALS: BP 140/68
[2020-12-02] MEDS ORDERED: Nitroglycerin Subl 0.4mg tab SL PRN (11:30)
[2020-12-02 14:03] VITALS: BP 129/73
--- NOTE | 2020-12-02 14:11 | NUR ---
called report to pietro finley.
--- NOTE | 2020-12-02 15:00 | NUR ---
NURSE NOTES: received patient report from [facility] from ER. Patient came in via [facility]. alert and oriented, not in acute distress. complaining of pain on the Right chest 03/21. noted she transferred from [facility] to her bed with minimal assist from ER staff. environmental monitoring technician initiated, skin is intact.on RA, tolertating well. VS taken and recorded. no pressure injury found. belongings checked and signed, under the care of dr cordero. will call admiting Md for admission orders.
--- NOTE | 2020-12-02 15:14 | History and Physical Report ---
DATE OF ADMISSION: 12/02/2020 TIME SEEN: 2 p.m. CONSULTANTS: 1. Jamarcus Perla MD. 2. Ishaan Griffiths MD. CHIEF COMPLAINT: Chest pain. BRIEF HISTORY: This is a 50-year-old female who lives at home presents with chest pain for about 3 days, intermittent, sharp, radiating to the left shoulder. No dizziness. No nausea, vomiting, diarrhea. No loss of consciousness. The patient came to [facility], diagnosed as above, being admitted shortly. Currently calm in bed in the ER gurney, no complaint. REVIEW OF SYSTEMS: Slight chest pain. No shortness of breath. No nausea, vomiting, or diarrhea. PAST MEDICAL HISTORY: Diabetes, hypertension, asthma, obesity. PAST SURGICAL HISTORY: Left hip. MEDICATIONS: Include insulin, nitroglycerin, aspirin. ALLERGIES: Penicillin. SOCIAL HISTORY: Positive smoke. Occasional alcohol. No intravenous drug abuse. FAMILY HISTORY: Noncontributory. PHYSICAL EXAMINATION: GENERAL: Calm in bed, oriented x3, no acute distress. VITAL SIGNS: Temperature is 98 degrees, pulse 81, respirations 18, blood pressure 129/73. CARDIOVASCULAR: No murmur. LUNGS: Distant and clear. ABDOMEN: Bowel sound positive. Nontender. Nondistended. EXTREMITIES: No cyanosis, clubbing, or edema. NEUROLOGIC: The patient moves all extremities, slightly weak. LABORATORY AND DIAGNOSTIC DATA: CBC is normal. BMP show glucose 464. AST 14. Troponin 0.00. ASSESSMENT: 1. Chest pain. 2. Diabetes. 3. Hyperglycemia. 4. Hypertension. 5. Obesity . 6. Asthma. PLAN: 1. Troponin every 8 hours. x3. 2. EKG in the morning. 3. Blood pressure and blood sugar control. 4. Resume home medications. 5. CBC and BMP in the morning. 6. Dr. Perla and Dr. Griffiths to consult. 7. We will continue to follow this patient. Jasmeet Anguiano D.O. DR: Jay JOB#: [id number] CC:
[2020-12-02 16:00] VITALS: BP 143/64
--- NOTE | 2020-12-02 16:04 | Diagnostic Imaging Report ---
Procedure: XRAY Chest 1v Reason for study: Chest pain Comparison films: 09/03/2020. FINDINGS: Radiograph is underpenetrated. Vascularity is normal. The lung velazquez are clear bilaterally. Cardiac and mediastinal silhouette are within normal limits. CP angles are sharp. The bony thorax appear unremarkable. IMPRESSION: Limited underpenetrated radiograph. No acute cardiopulmonary disease noted to the extent visualized.
[2020-12-02] MEDS ORDERED: Morphine Sulfate 2mg/ml Inj IVP PRN (16:15)
[2020-12-02] MEDS: NovoLOG Insulin Flexpen SUBQ SCH ×2 (16:59→20:56)
--- NOTE | 2020-12-02 17:52 | NUR ---
NURSE NOTES: left a message to dr ignacio regarding consultation for this patient. awaiting callback and new order.
[2020-12-02] MEDS: GlipiZIDE 5mg tab ORAL SCH (18:22)
--- NOTE | 2020-12-02 18:55 | NUR ---
NURSE HAND-OFF REPORT: Important Events on Shift:new admit Patient Status: full code Diet: CCHO, 2G Na Pending Orders: [] Pending Results/Labs:[] Pending MD notification:[] Latest Vital Signs: Temperature 97.9 , Pulse 86 , B/P 143 /64 , Respiratory Rate 20 , O2 SAT 95 , Room Air, O2 Flow Rate . Vital Sign Comment: stable EKG Rhythm: Sinus Rhythm Rhythm change?: N MD Notified?: - MD Response: Latest Cabral Fall Score: 60 Fall Risk: High Risk Safety Measures: Call light Within Reach, Bed Alarm Zone 2, Side Rails Side Rails x2, Bed position Low and Locked. Fall Precautions: Yellow Socks Report given to ivet westbrook.
--- NOTE | 2020-12-02 19:10 | Cardiac Electrophysiology PN ---
Subjective Subjective Seen in ER dictated [id number] Will schedule for Echo and stress test in am Add lisinopril Objective Last 24 Hour Vital Signs Date Time Temp Pulse Resp B/P (MAP) Pulse Ox O2 Delivery O2 Flow Rate FiO2 12/02/20 16:19 86 12/02/20 16:00 97.9 81 20 143/64 (90) 95 12/02/20 15:00 98.2 81 18 129/73 100 Room Air 12/02/20 14:58 Room Air 12/02/20 14:03 81 18 129/73 100 Room Air 12/02/20 11:32 132/50 12/02/20 11:06 92 18 140/68 100 Room Air 12/02/20 09:49 72 18 Room Air 12/02/20 09:47 98.2 72 18 153/84 99 Room Air 12/02/20 09:28 98.1 93 18 151/61 (91) 100 Room Air Laboratory Tests Test 12/02/20 09:46 12/02/20 09:50 12/02/20 12:42 12/02/20 18:10 POC Whole Blood Glucose Pending 303 MG/DL (74-106) H White Blood Count 7.1 K/UL (4.8-10.8) Red Blood Count 5.05 M/UL (4.20-5.40) Hemoglobin 14.1 G/DL (12.0-16.0) Hematocrit 44.6 % (37.0-47.0) Mean Corpuscular Volume 88 FL (80-99) Mean Corpuscular Hemoglobin 27.9 PG (27.0-31.0) Mean Corpuscular Hemoglobin Concent 31.6 G/DL (32.0-36.0) L Red Cell Distribution Width 13.5 % (11.6-14.8) Platelet Count 218 K/UL (150-450) Mean Platelet Volume 8.6 FL (6.5-10.1) Neutrophils (%) (Auto) 46.4 % (45.0-75.0) Lymphocytes (%) (Auto) 41.5 % (20.0-45.0) Monocytes (%) (Auto) 7.9 % (1.0-10.0) Eosinophils (%) (Auto) 3.2 % (0.0-3.0) H Basophils (%) (Auto) 1.0 % (0.0-2.0) Sodium Level 138 MMOL/L (136-145) Potassium Level 3.6 MMOL/L (3.5-5.1) Chloride Level 102 MMOL/L (98-107) Carbon Dioxide Level 27 MMOL/L (21-32) Anion Gap 9 mmol/L (5-15) Blood Urea Nitrogen 11 mg/dL (7-18) Creatinine 1.1 MG/DL (0.55-1.30) Estimat Glomerular Filtration Rate > 60 mL/min (>60) Glucose Level 464 MG/DL (74-106) H Calcium Level 8.9 MG/DL (8.5-10.1) Total Bilirubin 0.3 MG/DL (0.2-1.0) Aspartate Amino Transf (AST/SGOT) 14 U/L (15-37) L Alanine Aminotransferase (ALT/SGPT) 27 U/L (12-78) Alkaline Phosphatase 105 U/L (46-116) Troponin I 0.000 ng/mL (0.000-0.056) 0.000 ng/mL (0.000-0.056) Total Protein 7.7 G/DL (6.4-8.2) Albumin 3.4 G/DL (3.4-5.0) Globulin 4.3 g/dL Albumin/Globulin Ratio 0.8 (1.0-2.7) Jamarcus Marrufo MD Dec 02, 2020 19:10
[2020-12-02] MEDS ORDERED: Lexiscan 0.4mg/5ml syringe IV ONE (19:15)
--- NOTE | 2020-12-02 19:30 | NUR ---
NURSE NOTES: received patient resting comfortable in bed watching tv. assessment initiated. patient show no signs of distress. discussed plan of care. call espinoza within reach, will continue to monitor.
--- NOTE | 2020-12-02 19:44 | Consultation ---
DATE OF CONSULTATION: 12/02/2020 CARDIOLOGY CONSULTATION CONSULTING PHYSICIAN: Jamarcus Perla MD REFERRING PHYSICIAN: Jasmeet Anguiano DO REASON FOR CONSULTATION: Management of chest pain and palpitation and hypertension. HISTORY OF PRESENT ILLNESS: Patient is a 50-year-old lady with history of hypertension, diabetes, obesity, and hyperlipidemia presented to the emergency room complaining of chest pain as well as palpitation. The pain was in the right breast as well as left shoulder, intermittent for the past few days. Her primary complaint however was palpitation and felt that her pulse was irregular. Patient presented to the emergency room and a Cardiology consultation was obtained for further evaluation. At the time of my evaluation in the emergency room, the patient denies any chest pain or palpitation that she felt earlier. Her blood pressure in the ER was 151/61 with a pulse of 93. REVIEW OF SYSTEMS: Negative other than what is mentioned in the history of present illness. PAST MEDICAL HISTORY: As mentioned above. FAMILY HISTORY: Noncontributory. SOCIAL HISTORY: Occasionally smokes and drinks alcohol. Drinks caffeine. ALLERGIES: She is allergic to metformin and penicillin. MEDICATIONS: Per reconciliation. PHYSICAL EXAMINATION: VITAL SIGNS: Show blood pressure of 143/64, pulse is 81, respirations 18, temperature 98. HEAD AND NECK: Showed no JVD. LUNGS: Clear. CARDIOVASCULAR: Shows regular S1 and S2 with no gallop or murmur. ABDOMEN: Soft and obese. EXTREMITIES: No pitting edema. LABORATORY DATA: Labs show white count 7.1, hemoglobin 14, hematocrit 44.6, and platelet count 218. Sodium is 138, potassium 3.6, BUN of 11, creatinine of 1.1, and glucose of 464. Troponin is negative x2. ASSESSMENT AND PLAN: 1. Atypical chest pain. Patient already ruled out for myocardial infarction. Her glucose is 464. She is at high risk for coronary artery disease in view of uncontrolled diabetes, hypertension, and obesity. We will get an echocardiogram and schedule patient for nuclear stress test in the morning. 2. Hypertension. Start the patient on lisinopril 10 mg daily. 3. Diabetes, on Glucotrol and insulin. Patient states she is allergic to metformin. 4. Obesity. 5. Irregular heartbeat. Watch the patient on telemetry for further evaluation. Thank you very much for allowing me to participate in the care of this patient. Please do not hesitate to contact me if you have any questions regarding my evaluation. Jamarcus Perla M.D. DR: CHRISTIANO JOB#: [id number] CC:
[2020-12-02 20:00] VITALS: BP 144/70
[2020-12-02] MEDS: Heparin 5000 units/ml inj SUBQ SCH (20:57)
[2020-12-03] VITALS: BP 140/74
[2020-12-03 02:55] LABS: ANION GAP 9 mmol/L (5-15); BLOOD UREA NITROGEN 11 mg/dL (7-18); CALCIUM 8.9 MG/DL (8.5-10.1); CARBON DIOXIDE 25 MMOL/L (21-32); CHLORIDE 106 MMOL/L (98-107); POTASSIUM 3.9 MMOL/L (3.5-5.1); SODIUM 140 MMOL/L (136-145)
[2020-12-03 03:17] LABS: BASOPHILS % (AUTO) 1.3 % (0.0-2.0); EOSINOPHILS % (AUTO) 4.2 % (0.0-3.0); HEMATOCRIT 43.7 % (37.0-47.0); HEMOGLOBIN 13.7 G/DL (12.0-16.0); LYMPHOCYTES % (AUTO) 43.5 % (20.0-45.0); MEAN CORPUSCULAR VOLUME 88 FL (80-99); PLATELET COUNT 235 K/UL (150-450); RED BLOOD COUNT 4.99 M/UL (4.20-5.40); RED CELL DISTRIBUTION WIDTH 13.4 % (11.6-14.8); WHITE BLOOD COUNT 6.4 K/UL (4.8-10.8)
[2020-12-03 04:00] VITALS: BP 132/60
[2020-12-03] MEDS: GlipiZIDE 5mg tab ORAL SCH (06:30)
[2020-12-03] MEDS: NovoLOG Insulin Flexpen SUBQ SCH (06:30)
--- NOTE | 2020-12-03 07:28 | NUR ---
NURSE HAND-OFF REPORT: Important Events on Shift: no chest pain. patient is schedule to have a stress test this morning. patient has been NPO. no signs of distress. no SOB Patient Status: full Diet: NPO Pending Orders: Pending Results/Labs: Pending MD notification: Latest Vital Signs: Temperature 97.8 , Pulse 86 , B/P 132 /60 , Respiratory Rate 20 , O2 SAT 98 , Room Air, O2 Flow Rate . Vital Sign Comment: EKG Rhythm: Sinus Rhythm Rhythm change?: N MD Notified?: - MD Response: Latest Cabral Fall Score: 60 Fall Risk: High Risk Safety Measures: Call light Within Reach, Bed Alarm Zone 2, Side Rails Side Rails x2, Bed position Low and Locked. Fall Precautions: Patient Fall Education Report given to Hortensia GARCIA .
[2020-12-03 08:15] VITALS: BP 102/62
[2020-12-03 08:16] VITALS: BP 140/52
[2020-12-03 08:31] VITALS: BP 140/52
[2020-12-03] MEDS: Heparin 5000 units/ml inj SUBQ SCH (08:38)
[2020-12-03] MEDS ORDERED: Lisinopril 10mg tab ORAL SCH (09:00)
--- NOTE | 2020-12-03 09:19 | NUR ---
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
--- NOTE | 2020-12-03 09:19 | General Progress Note ---
Subjective Constitutional: Reports: weakness Allergies: Coded Allergies: METFORMIN (Verified Allergy, Unknown, Rash, 03/13/19) PENICILLINS (Unverified Allergy, Unknown, 12/07/14) TRAMADOL (Verified Allergy, Unknown, Rash, 03/13/19) All Systems: reviewed and negative except above Subjective calm no complaints Objective Last 24 Hour Vital Signs Date Time Temp Pulse Resp B/P (MAP) Pulse Ox O2 Delivery O2 Flow Rate FiO2 12/03/20 08:31 140/52 12/03/20 08:16 98.3 82 20 140/52 (81) 97 12/03/20 04:00 86 12/03/20 04:00 97.8 81 20 132/60 (84) 98 12/03/20 00:00 97.6 82 18 140/74 (96) 100 12/03/20 00:00 89 12/02/20 21:00 Room Air 12/02/20 20:00 97.7 81 20 144/70 (94) 99 12/02/20 20:00 86 12/02/20 16:19 86 12/02/20 16:00 97.9 81 20 143/64 (90) 95 12/02/20 15:00 98.2 81 18 129/73 100 Room Air 12/02/20 14:58 Room Air 12/02/20 14:03 81 18 129/73 100 Room Air 12/02/20 11:32 132/50 12/02/20 11:06 92 18 140/68 100 Room Air 12/02/20 09:49 72 18 Room Air 12/02/20 09:47 98.2 72 18 153/84 99 Room Air 12/02/20 09:28 98.1 93 18 151/61 (91) 100 Room Air Intake and Output 12/02/20 12/03/20 19:00 07:00 Intake Total 310 ml Balance 310 ml Intake Oral 250 ml IV Total 60 ml # Voids 3 # Bowel Movements 1 Laboratory Tests 12/02/20 09:46: POC Whole Blood Glucose [Pending] 12/02/20 09:50: White Blood Count 7.1, Red Blood Count 5.05, Hemoglobin 14.1, Hematocrit 44.6, Mean Corpuscular Volume 88, Mean Corpuscular Hemoglobin 27.9, Mean Corpuscular Hemoglobin Concent 31.6L, Red Cell Distribution Width 13.5, Platelet Count 218, Mean Platelet Volume 8.6, Neutrophils (%) (Auto) 46.4, Lymphocytes (%) (Auto) 41.5, Monocytes (%) (Auto) 7.9, Eosinophils (%) (Auto) 3.2H, Basophils (%) (Auto) 1.0, Sodium Level 138, Potassium Level 3.6, Chloride Level 102, Carbon Dioxide Level 27, Anion Gap 9, Blood Urea Nitrogen 11, Creatinine 1.1, Estimat Glomerular Filtration Rate > 60, Glucose Level 464H, Calcium Level 8.9, Total Bilirubin 0.3, Aspartate Amino Transf (AST/SGOT) 14L, Alanine Aminotransferase (ALT/SGPT) 27, Alkaline Phosphatase 105, Troponin I 0.000, Total Protein 7.7, Albumin 3.4, Globulin 4.3, Albumin/Globulin Ratio 0.8L 12/02/20 12:42: POC Whole Blood Glucose 303H 12/02/20 18:10: Troponin I 0.000 12/03/20 01:56: White Blood Count 6.4, Red Blood Count 4.99, Hemoglobin 13.7, Hematocrit 43.7, Mean Corpuscular Volume 88, Mean Corpuscular Hemoglobin 27.4, Mean Corpuscular Hemoglobin Concent 31.3L, Red Cell Distribution Width 13.4, Platelet Count 235, Mean Platelet Volume 9.2, Neutrophils (%) (Auto) 42.0L, Lymphocytes (%) (Auto) 43.5, Monocytes (%) (Auto) 9.0, Eosinophils (%) (Auto) 4.2H, Basophils (%) (Auto) 1.3, Sodium Level 140, Potassium Level 3.9, Chloride Level 106, Carbon Dioxide Level 25, Anion Gap 9, Blood Urea Nitrogen 11, Creatinine 1.0, Estimat Glomerular Filtration Rate > 60, Glucose Level 256#H, Calcium Level 8.9, Troponin I 0.000, Pro-B-Type Natriuretic Peptide 18 Height (Feet): 5 Height (Inches): 4.00 Weight (Pounds): 210 General Appearance: alert EENT: normal ENT inspection Neck: normal alignment Cardiovascular: normal peripheral pulses, normal rate, regular rhythm Respiratory/Chest: chest wall non-tender, lungs clear, normal breath sounds Abdomen: normal bowel sounds, non tender, soft Extremities: normal inspection Edema: no edema noted Arm (L), no edema noted Arm (R), no edema noted Leg (L), no edema noted Leg (R), no edema noted Pedal (L), no edema noted Pedal (R), no edema noted Generalized Neurologic: motor weakness Skin: normal pigmentation, warm/dry Assessment/Plan Problem List: (1) HTN (hypertension) ICD Codes: I10 - Essential (primary) hypertension SNOMED: 03708487 (2) Diabetes ICD Codes: E11.9 - Type 2 diabetes mellitus without complications SNOMED: 45646507, 033390850, [id number] (3) Chest pain ICD Codes: R07.9 - Chest pain, unspecified SNOMED: 86470719, [id number] Assessment/Plan: cardiac f/u pain control, pt wants to leave Jasmeet Martínez DO Dec 03, 2020 09:19
--- NOTE | 2020-12-03 09:22 | NUR ---
IV AND TELE DISCONTINUED
--- NOTE | 2020-12-03 11:00 | NUR ---
INSURANCE CLINICALS FAXED TO [facility] #[phone] fax# [phone]
--- NOTE | 2020-12-03 15:21 | Cardiology Report ---
APPROVED REPORT EKG Measurement Heart [id number] AR [id number] <Conclusion> Normal sinus rhythm Possible Anterior infarct, age undetermined Abnormal ECG
--- NOTE | 2020-12-05 10:02 | Discharge Summary ---
Discharge Summary Discharge Summary _ Date of admission: 12/02/2020 Patient left AGAINST MEDICAL ADVICE on 12/03/2020 History of Present Illness and Brief Hospital Course Ms. Vazquez is a 50-year-old female with history of obesity, hypertension, and diabetes type 2, who presented to the ED for evaluation of chest pain over the past 3 days. She denied history of CAD. Her initial EKG on arrival showed sinus rhythm without ischemic changes. There were Q waves in lead III also seen on prior EKGs. Fingerstick on arrival showed 419. Patient was treated with fluids and insulin. Troponin was negative. Chest x-ray showed no acute cardiopulmonary disease. Given the patient's risk factors, she was admitted to the hospital for further evaluation and treatment. Patient was given insulin and glipizide for blood glucose control. Patient was also given lisinopril for blood pressure control. Patient was scheduled for echocardiogram and stress test. However, patient stated that she had "things to do" and requested to be released from the hospital. Patient was advised against leaving AMA. Patient signed the AMA form and left the hospital. Consultants: Cardiology Dr. Perla Final diagnoses Atypical chest pain Hypertension Diabetes mellitus type 2, uncontrolled Obesity I have been assigned to dictate discharge summary for this account. I was not involved in the patient's management Donavan Lo Dec 05, 2020 10:02
--- NOTE | 2020-12-05 11:11 | NUR ---
INSURANCE DC SUMMARY FAXED TO [facility] #[phone] fax# [phone]
== END 2020-12-03 09:35 | disposition left against medical advice (07) | DRG 313 ==
LOC: EMR 10:04 → OBSVTOIN 11:45 → 2E 11:45 → EDBEDREQ 13:44
DX: R07.89 Other chest pain (principal); E11.65 Type 2 diabetes mellitus with hyperglycemia; I10 Essential (primary) hypertension; E66.9 Obesity, unspecified; J45.909 Unspecified asthma, uncomplicated; Z88.0 Allergy status to penicillin; Z88.8 Allergy status to other drugs, medicaments and biological substances; I49.9 Cardiac arrhythmia, unspecified; Z79.84 Long term (current) use of oral hypoglycemic drugs; Z79.82 Long term (current) use of aspirin
CPT/HCPCS: 36415; 71045; 80048; 80053; 82962; 83880; 84484; 85025; 93005; 93017; 96361; 96374; 96376; 99285; J1815; J7030